=== PATIENT | female | born 1950 | race Caucasian/White ===

== ENCOUNTER 2017-08-11 13:43 | Day surgery (SDC) | payer MEDICARE, OTHER ==
[~2017-08-11 13:43] MED LIST: FLUR100 PO; HYDCHL12.5; HYDPAM50 PO; OXYACE5T PO; Vitamin A and1 EACH
[2017-08-11 15:51] LABS: Lactate Dehydrogenase, Body Fl 168 U/L
[2017-08-11 16:13] LABS: Protein, Body Fluid 4.7 g/dL
[2017-08-11 17:03] LABS: Appearance, Body Fluid Turbid (Clear); Color, Body Fluid Red (None-Yellow)
[2017-08-11 17:19] LABS: Total Cell Count, Body Fluid 100
[2017-09-09] MEDS ORDERED: CHOL10002 PO (21:41)
== END 2017-08-11 22:59 | disposition home or self-care (01) ==
LOC: US 13:43
PROVIDERS: Physician Assistant
PROC: 0W9G3ZZ Drainage of Peritoneal Cavity, Percutaneous Approach (ICD-10-PCS; principal; 2017-08-11)
DX: J18.9 Pneumonia, unspecified organism (principal); J91.8 Pleural effusion in other conditions classified elsewhere
CPT/HCPCS: 32555; 71260; 83615; 84157; 87070; 87205; 88108; 89051; Q9967

== ENCOUNTER 2017-09-09 18:57 | Inpatient (IN) | payer MEDICARE, OTHER ==
[~2017-09-09] VITALS: Ht 152.4 cm; Wt 67.4 kg
[2017-09-09 19:26] LABS: BASOPHILS ABSOLUTE AUTO 0.01 K/mm3 (0.00-0.23); BASOPHILS PERCENT AUTO 0 % (0-2); EOSINOPHILS PERCENT AUTO 0 % (0-6); Hematocrit 37.4 % (33.0-51.0); Hemoglobin 12.1 g/dL (11.5-16.0); IMMATURE GRAN ABSOLUTE AUTO 0.01 K/mm3 (0.00-0.10); IMMATURE GRAN PERCENT AUTO 0 % (0-1); LYMPHOCYTES ABSOLUTE AUTO 0.18 K/mm3 (0.84-5.20); LYMPHOCYTES PERCENT AUTO 2 % (21-46); MONOCYTES ABSOLUTE AUTO 0.36 K/mm3 (0.16-1.47); MONOCYTES PERCENT AUTO 5 % (4-13); Mean Corpuscular HGB 28.8 pg (26.0-34.0); Mean Corpuscular HGB Conc 32.4 g/dL (31.5-36.5); Mean Corpuscular Volume 89 fL (80-100); Mean Platelet Volume 8.9 fL (9.1-12.4); NEUTROPHILS ABSOLUTE AUTO 7.04 K/mm3 (1.96-9.15); NEUTROPHILS PERCENT AUTO 93 % (41-73); Platelet Count 231 K/mm3 (150-400); RDW Standard Deviation 45.3 fL (35.1-46.3)
[2017-09-09 19:56] LABS: Alanine Aminotransfer (ALT/SGP 24 U/L (12-78); Albumin, Blood 3.6 g/dL (3.4-5.0); Albumin/Globulin Ratio 0.9 (0.8-1.8); Alk Phos 70 U/L (50-136); Anion Gap 9 mmol/L (6-16); Aspartate Aminotrans (AST/SGOT 24 U/L (12-37); Bilirubin, Total 1.2 mg/dL (0.1-1.0); Blood Urea Nitrogen 18 mg/dL (8-24); Bun/Creatinine Ratio 29.1 (12.0-20.0); CO2, Blood 27 mmol/L (21-32); Calcium, Blood 8.7 mg/dL (8.5-10.1); Chloride, Blood 101 mmol/L (98-108); Creatinine, Blood 0.62 mg/dL (0.40-1.00); Globulin, Blood 3.9 g/dL (2.2-4.0); Glomerular Filtration Rate >60 (60-); Glucose, Blood 134 mg/dL (70-99); Potassium, Blood 3.1 mmol/L (3.5-5.5); Sodium, Blood 137 mmol/L (136-145); Total Protein, Blood 7.5 g/dL (6.4-8.2); Troponin I <0.015 ng/mL (0.000-0.040)
[2017-09-09 21:06] LABS: Magnesium, Blood 1.9 mg/dL (1.6-2.4)
[2017-09-09 21:16] LABS: International Normalized Ratio 1.07; Prothrombin Time Results 11.1 Sec (9.7-11.5)
[2017-09-09] MEDS ORDERED: CHOL10002 (21:41)
[2017-09-10 05:49] LABS: Alanine Aminotransfer (ALT/SGP 20 U/L (12-78); Albumin, Blood 2.7 g/dL (3.4-5.0); Albumin/Globulin Ratio 0.7 (0.8-1.8); Alk Phos 58 U/L (50-136); Anion Gap 7 mmol/L (6-16); Aspartate Aminotrans (AST/SGOT 14 U/L (12-37); Bilirubin, Total 1.3 mg/dL (0.1-1.0); Blood Urea Nitrogen 18 mg/dL (8-24); Bun/Creatinine Ratio 30.8 (12.0-20.0); CO2, Blood 27 mmol/L (21-32); Calcium, Blood 8.5 mg/dL (8.5-10.1); Chloride, Blood 106 mmol/L (98-108); Creatinine, Blood 0.58 mg/dL (0.40-1.00); Globulin, Blood 3.7 g/dL (2.2-4.0); Glomerular Filtration Rate >60 (60-); Glucose, Blood 111 mg/dL (70-99); Potassium, Blood 4.1 mmol/L (3.5-5.5); Sodium, Blood 140 mmol/L (136-145); Total Protein, Blood 6.4 g/dL (6.4-8.2)
[2017-09-11 05:51] LABS: Anion Gap 6 mmol/L (6-16); Blood Urea Nitrogen 18 mg/dL (8-24); Bun/Creatinine Ratio 34.7 (12.0-20.0); CO2, Blood 28 mmol/L (21-32); Calcium, Blood 8.8 mg/dL (8.5-10.1); Chloride, Blood 104 mmol/L (98-108); Creatinine, Blood 0.52 mg/dL (0.40-1.00); Glomerular Filtration Rate >60 (60-); Glucose, Blood 153 mg/dL (70-99); Potassium, Blood 3.8 mmol/L (3.5-5.5); Sodium, Blood 138 mmol/L (136-145)
[2017-09-11] MEDS ORDERED: ACET325 PO (14:23)
[2017-09-11] MEDS ORDERED: BENZ100A PO (14:24)
[2017-09-11] MEDS ORDERED: ALBU2.5V5 INH (14:24)
[2017-09-11] MEDS ORDERED: FAMO20 PO (14:25)
[2017-09-11] MEDS ORDERED: GAVILAX17 G1 PO (14:26)
[2017-09-11] MEDS ORDERED: PRED10 PO (14:26)
== END 2017-09-11 14:46 | disposition home or self-care (01) | DRG 188 ==
LOC: ER 18:57 → MEDS 18:58
PROVIDERS: Emergency Medicine; Internal Medicine
PROC: 0W9B3ZZ Drainage of Left Pleural Cavity, Percutaneous Approach (ICD-10-PCS; principal; 2017-09-10)
DX: J90 Pleural effusion, not elsewhere classified (principal); M06.9 Rheumatoid arthritis, unspecified; M41.9 Scoliosis, unspecified; I89.0 Lymphedema, not elsewhere classified
CPT/HCPCS: 32555; 36415; 71045; 71046; 80048; 80053; 83735; 83880; 84484; 85025; 85610; 93005; 93010; 94640; 94760; 96372; 99285; G0378; J1644; J2930

== ENCOUNTER 2017-09-22 10:57 | Inpatient (IN) | payer MEDICARE, OTHER ==
[~2017-09-22] VITALS: Ht 152.4 cm; Wt 66.6 kg
[~2017-09-22 10:57] MED LIST changes: +ACET325 PO; +ALBU2.5V5 INH; +BENZ100A PO; +CHOL10002 PO; +FAMO20 PO; +GAVILAX17 G1 PO; +PRED10 PO
[2017-09-22 11:54] LABS: BASOPHILS ABSOLUTE AUTO 0.03 K/mm3 (0.00-0.23); BASOPHILS PERCENT AUTO 0 % (0-2); EOSINOPHILS PERCENT AUTO 0 % (0-6); Hematocrit 31.8 % (33.0-51.0); Hemoglobin 10.4 g/dL (11.5-16.0); IMMATURE GRAN ABSOLUTE AUTO 0.08 K/mm3 (0.00-0.10); IMMATURE GRAN PERCENT AUTO 1 % (0-1); LYMPHOCYTES ABSOLUTE AUTO 0.23 K/mm3 (0.84-5.20); LYMPHOCYTES PERCENT AUTO 2 % (21-46); MONOCYTES ABSOLUTE AUTO 0.93 K/mm3 (0.16-1.47); MONOCYTES PERCENT AUTO 7 % (4-13); Mean Corpuscular HGB 29.3 pg (26.0-34.0); Mean Corpuscular HGB Conc 32.7 g/dL (31.5-36.5); Mean Corpuscular Volume 90 fL (80-100); Mean Platelet Volume 8.4 fL (9.1-12.4); NEUTROPHILS ABSOLUTE AUTO 12.68 K/mm3 (1.96-9.15); NEUTROPHILS PERCENT AUTO 91 % (41-73); Platelet Count 433 K/mm3 (150-400); RDW Coefficient Variation 14.1 % (11.7-14.2); RDW Standard Deviation 46.5 fL (35.1-46.3); Red Blood Cell Count 3.55 M/mm3 (3.80-5.20); White Blood Cell Count 13.95 K/mm3 (4.00-11.30)
[2017-09-22 12:20] LABS: Alanine Aminotransfer (ALT/SGP 41 U/L (12-78); Albumin, Blood 2.7 g/dL (3.4-5.0); Albumin/Globulin Ratio 0.6 (0.8-1.8); Alk Phos 128 U/L (50-136); Anion Gap 6 mmol/L (6-16); Aspartate Aminotrans (AST/SGOT 18 U/L (12-37); Bilirubin, Total 1.1 mg/dL (0.1-1.0); Blood Urea Nitrogen 12 mg/dL (8-24); Bun/Creatinine Ratio 21.7 (12.0-20.0); CO2, Blood 30 mmol/L (21-32); Calcium, Blood 8.5 mg/dL (8.5-10.1); Chloride, Blood 100 mmol/L (98-108); Creatinine, Blood 0.55 mg/dL (0.40-1.00); Globulin, Blood 4.6 g/dL (2.2-4.0); Glomerular Filtration Rate >60 (60-); Glucose, Blood 118 mg/dL (70-99); Potassium, Blood 3.6 mmol/L (3.5-5.5); Sodium, Blood 136 mmol/L (136-145); Total Protein, Blood 7.3 g/dL (6.4-8.2)
[2017-09-22 14:56] LABS: Automated BF RBC Count 0.177 M/mm3 (0-0); Automated BF WBC Count 1.022 K/mm3 (0-999); Body Fluid WBC Count 1022 /mm3 (0-999); RBC Count, Body Fluid 177000 /mm3 (0-0)
[2017-09-22 15:30] LABS: Appearance, Body Fluid Turbid (Clear); Color, Body Fluid Red (None-Yellow)
[2017-09-22 15:34] LABS: Total Cell Count, Body Fluid 100
[2017-09-22 22:30] LABS: Source, Urine Clean Catch
[2017-09-22 22:32] LABS: Bilirubin, Urine Neg (Neg); Blood, Urine 2+ (Neg); Glucose Qualitative, Urine Neg (Neg); Ketones, Urine Neg (Neg); Leukocyte Esterase, Urine Neg (Neg); Nitrite, Urine Neg (Neg); Protein, Urine Neg (Neg); Specific Gravity, Urine 1.015 (1.003-1.022); Urobilinogen, Urine NORM (Normal)
[2017-09-22 22:40] LABS: Appearance, Urine Clear (Clear); Color, Urine Yellow (P-Yellow)
[2017-09-22 22:41] LABS: Bacteria Few /hpf; Red Blood Cells, Urine 0-2 /hpf (0-2); Squamous Epithelial Cells Few /hpf (Few); White Blood Cells, Urine 0-2 /hpf (0-5)
[2017-09-23 05:07] LABS: BASOPHILS ABSOLUTE AUTO 0.01 K/mm3 (0.00-0.23); BASOPHILS PERCENT AUTO 0 % (0-2); EOSINOPHILS PERCENT AUTO 0 % (0-6); IMMATURE GRAN ABSOLUTE AUTO 0.05 K/mm3 (0.00-0.10); IMMATURE GRAN PERCENT AUTO 1 % (0-1); LYMPHOCYTES ABSOLUTE AUTO 0.47 K/mm3 (0.84-5.20); LYMPHOCYTES PERCENT AUTO 5 % (21-46); MONOCYTES ABSOLUTE AUTO 0.94 K/mm3 (0.16-1.47); MONOCYTES PERCENT AUTO 9 % (4-13); Mean Corpuscular HGB 28.8 pg (26.0-34.0); Mean Corpuscular HGB Conc 32.1 g/dL (31.5-36.5); Mean Corpuscular Volume 90 fL (80-100); Mean Platelet Volume 8.8 fL (9.1-12.4); NEUTROPHILS ABSOLUTE AUTO 8.82 K/mm3 (1.96-9.15); NEUTROPHILS PERCENT AUTO 86 % (41-73); Platelet Count 350 K/mm3 (150-400); RDW Standard Deviation 45.7 fL (35.1-46.3); Red Blood Cell Count 3.13 M/mm3 (3.80-5.20); White Blood Cell Count 10.29 K/mm3 (4.00-11.30)
[2017-09-23 05:34] LABS: Alanine Aminotransfer (ALT/SGP 32 U/L (12-78); Albumin, Blood 1.9 g/dL (3.4-5.0); Albumin/Globulin Ratio 0.5 (0.8-1.8); Alk Phos 100 U/L (50-136); Anion Gap 8 mmol/L (6-16); Aspartate Aminotrans (AST/SGOT 12 U/L (12-37); Bilirubin, Total 0.7 mg/dL (0.1-1.0); Blood Urea Nitrogen 13 mg/dL (8-24); Bun/Creatinine Ratio 25.6 (12.0-20.0); CO2, Blood 29 mmol/L (21-32); Calcium, Blood 8.3 mg/dL (8.5-10.1); Chloride, Blood 102 mmol/L (98-108); Creatinine, Blood 0.51 mg/dL (0.40-1.00); Globulin, Blood 4.2 g/dL (2.2-4.0); Glomerular Filtration Rate >60 (60-); Glucose, Blood 98 mg/dL (70-99); Potassium, Blood 3.5 mmol/L (3.5-5.5); Sodium, Blood 139 mmol/L (136-145); Total Protein, Blood 6.1 g/dL (6.4-8.2); Troponin I <0.015 ng/mL (0.000-0.040)
[2017-09-25 09:26] LABS: HCV Non Reactive (NR)
[2017-09-25] MEDS ORDERED: LEVFLO500 PO (15:57)
[2017-09-25] MEDS ORDERED: ALBU90OI INH (15:58)
== END 2017-09-25 17:06 | disposition home or self-care (01) | DRG 871 ==
LOC: ER 10:57 → MEDS 15:49
PROVIDERS: Emergency Medicine; Internal Medicine; Physician Assistant
PROC: 0W9B3ZZ Drainage of Left Pleural Cavity, Percutaneous Approach (ICD-10-PCS; principal; 2017-09-22)
PROC: 0W993ZX Drainage of Right Pleural Cavity, Percutaneous Approach, Diagnostic (ICD-10-PCS; 2017-09-22)
DX: A41.51 Sepsis due to Escherichia coli [E. coli] (principal); J18.9 Pneumonia, unspecified organism; J96.21 Acute and chronic respiratory failure with hypoxia; J90 Pleural effusion, not elsewhere classified; J98.11 Atelectasis; M06.9 Rheumatoid arthritis, unspecified; R09.02 Hypoxemia; Z99.81 Dependence on supplemental oxygen; J45.909 Unspecified asthma, uncomplicated; I89.0 Lymphedema, not elsewhere classified; I10 Essential (primary) hypertension
CPT/HCPCS: 32555; 36415; 71045; 71046; 80053; 80074; 81001; 83605; 84443; 84484; 85025; 87040; 87070; 87077; 87186; 87205; 89051; 93005; 93010; 94640; 94760; 94761; 96365; 96366; 96367; 96368; 97116; 97161; 99285; G8978; G8979; G8980; J0456; J0696; J1650; J1956; J2543; J7030; J7050

== ENCOUNTER 2018-10-01 07:39 | Day surgery (SDC) | payer MEDICARE, OTHER ==
[~2018-10-01 07:39] MED LIST changes: +ALBU90OI INH; +LEVFLO500 PO
== END 2018-10-01 23:08 | disposition home or self-care (01) ==
LOC: MOI US 07:39 → MOI MAM 08:00 → MOI US 23:08
DX: D24.2 Benign neoplasm of left breast (principal); R92.8 Other abnormal and inconclusive findings on diagnostic imaging of breast
CPT/HCPCS: 19083; 77065; 88305; A4648; G0279

== ENCOUNTER → 2018-10-07 | Outpatient (CLI) | payer MEDICARE, OTHER ==
[2018-10-08 14:24] LABS: Stool Occult Bld Immuno 1 Negative (NEGATIVE); Stool Occult Bld Immuno 2 Negative (NEGATIVE); Stool Occult Bld Immuno 3 Negative (NEGATIVE)
== END | disposition home or self-care (01) ==
LOC: LAB EV 09:00
PROVIDERS: Physician Assistant
DX: D64.9 Anemia, unspecified (principal)
CPT/HCPCS: 82274

== ENCOUNTER 2020-01-01 09:31 | Emergency (ER) | payer MEDICARE, OTHER ==
[~2020-01-01] VITALS: Ht 149.9 cm; Wt 51.3 kg
[2020-01-01 10:04] LABS: BASOPHILS ABSOLUTE AUTO 0.05 K/mm3 (0.00-0.23); BASOPHILS PERCENT AUTO 1 % (0-2); EOSINOPHILS ABSOLUTE AUTO 0.02 K/mm3 (0.00-0.68); EOSINOPHILS PERCENT AUTO 0 % (0-6); Hematocrit 28.5 % (33.0-51.0); Hemoglobin 8.4 g/dL (11.5-16.0); IMMATURE GRAN ABSOLUTE AUTO 0.03 K/mm3 (0.00-0.10); IMMATURE GRAN PERCENT AUTO 1 % (0-1); LYMPHOCYTES ABSOLUTE AUTO 0.87 K/mm3 (0.84-5.20); LYMPHOCYTES PERCENT AUTO 13 % (21-46); MONOCYTES ABSOLUTE AUTO 0.71 K/mm3 (0.16-1.47); MONOCYTES PERCENT AUTO 11 % (4-13); Mean Corpuscular HGB 26.3 pg (26.0-34.0); Mean Corpuscular HGB Conc 29.5 g/dL (31.5-36.5); Mean Corpuscular Volume 89 fL (80-100); NEUTROPHILS ABSOLUTE AUTO 4.96 K/mm3 (1.96-9.15); NEUTROPHILS PERCENT AUTO 75 % (41-73); Platelet Count 503 K/mm3 (150-400); RDW Coefficient Variation 14.1 % (11.7-14.2); RDW Standard Deviation 45.7 fL (35.1-46.3); White Blood Cell Count 6.64 K/mm3 (4.00-11.30)
[2020-01-01 10:17] LABS: International Normalized Ratio 1.11; Prothrombin Time Results 11.8 Sec (9.7-11.5)
[2020-01-01 10:38] LABS: Alanine Aminotransfer (ALT/SGP 6 U/L (12-78); Albumin, Blood 2.2 g/dL (3.4-5.0); Albumin/Globulin Ratio 0.4 (0.8-1.8); Alk Phos 86 U/L (50-136); Anion Gap 5 mmol/L (6-16); Aspartate Aminotrans (AST/SGOT 8 U/L (12-37); Bilirubin, Total 0.2 mg/dL (0.1-1.0); Blood Urea Nitrogen 13 mg/dL (8-24); Bun/Creatinine Ratio 24.6 (12.0-20.0); CO2, Blood 29 mmol/L (21-32); Calcium, Blood 8.6 mg/dL (8.5-10.1); Chloride, Blood 104 mmol/L (98-108); Creatinine, Blood 0.53 mg/dL (0.40-1.00); Glomerular Filtration Rate >60 (60-); Glucose, Blood 100 mg/dL (70-99); Potassium, Blood 3.3 mmol/L (3.5-5.5); Sodium, Blood 138 mmol/L (136-145); Total Protein, Blood 8.2 g/dL (6.4-8.2)
[2020-01-01] MEDS ORDERED: HYDCHL25 PO (10:51)
[2020-01-01] MEDS ORDERED: LEVFLO500 PO (12:06)
== END 2020-01-01 13:47 | disposition home or self-care (01) ==
LOC: ER 09:31
PROVIDERS: Physician Assistant
DX: T84.051A Periprosthetic osteolysis of internal prosthetic left hip joint, initial encounter (principal); T84.52XA Infection and inflammatory reaction due to internal left hip prosthesis, initial encounter; M06.9 Rheumatoid arthritis, unspecified; Z79.52 Long term (current) use of systemic steroids; Z79.899 Other long term (current) drug therapy; Z96.642 Presence of left artificial hip joint; S71.002A Unspecified open wound, left hip, initial encounter; M85.852 Other specified disorders of bone density and structure, left thigh
CPT/HCPCS: 36415; 73502; 80053; 83605; 84145; 85025; 85610; 85730; 87040; 87070; 87075; 87077; 87186; 87205; 93005; 93010; 99284-25

== ENCOUNTER 2020-09-11 00:40 | Day surgery (SDC) | payer MEDICARE, OTHER ==
[~2020-09-11 00:40] MED LIST changes: +HYDCHL25 PO
== END 2020-09-11 22:58 | disposition home or self-care (01) ==
LOC: WOUND 00:40
DX: L97.311 Non-pressure chronic ulcer of right ankle limited to breakdown of skin (principal); L95.9 Vasculitis limited to the skin, unspecified; L97.309 Non-pressure chronic ulcer of unspecified ankle with unspecified severity; I87.2 Venous insufficiency (chronic) (peripheral); I73.9 Peripheral vascular disease, unspecified; L03.115 Cellulitis of right lower limb; M21.41 Flat foot [pes planus] (acquired), right foot
CPT/HCPCS: A9270; G0463

== ENCOUNTER 2020-09-18 00:52 | Day surgery (SDC) | payer MEDICARE, OTHER | END 2020-09-18 23:10 | disposition home or self-care (01) | LOC: WOUND 00:52 | DX: L97.311 Non-pressure chronic ulcer of right ankle limited to breakdown of skin (principal); L95.9 Vasculitis limited to the skin, unspecified; I87.2 Venous insufficiency (chronic) (peripheral); I73.9 Peripheral vascular disease, unspecified; L03.115 Cellulitis of right lower limb; M21.41 Flat foot [pes planus] (acquired), right foot | CPT/HCPCS: A9270 ==

== ENCOUNTER 2020-10-09 02:05 | Day surgery (SDC) | payer MEDICARE, OTHER | END 2020-10-09 23:09 | disposition home or self-care (01) | LOC: WOUND 02:05 | DX: L03.115 Cellulitis of right lower limb (principal); L95.9 Vasculitis limited to the skin, unspecified; L97.309 Non-pressure chronic ulcer of unspecified ankle with unspecified severity; I87.2 Venous insufficiency (chronic) (peripheral); I73.9 Peripheral vascular disease, unspecified; L97.311 Non-pressure chronic ulcer of right ankle limited to breakdown of skin; M21.41 Flat foot [pes planus] (acquired), right foot | CPT/HCPCS: A9270 ==

== ENCOUNTER 2020-10-16 00:45 | Day surgery (SDC) | payer MEDICARE, OTHER | END 2020-10-16 23:07 | disposition home or self-care (01) | LOC: WOUND 00:45 | DX: L97.515 Non-pressure chronic ulcer of other part of right foot with muscle involvement without evidence of necrosis (principal); L97.512 Non-pressure chronic ulcer of other part of right foot with fat layer exposed; L97.311 Non-pressure chronic ulcer of right ankle limited to breakdown of skin; L95.9 Vasculitis limited to the skin, unspecified; I87.2 Venous insufficiency (chronic) (peripheral); I73.9 Peripheral vascular disease, unspecified; L03.115 Cellulitis of right lower limb; M21.41 Flat foot [pes planus] (acquired), right foot | CPT/HCPCS: 87071; 87075; 87077; 87147; 87186; 87205; A9270 ==

== ENCOUNTER 2020-10-23 00:30 | Day surgery (SDC) | payer MEDICARE, OTHER | END 2020-10-23 22:41 | disposition home or self-care (01) | LOC: WOUND 00:30 | DX: L03.115 Cellulitis of right lower limb (principal); L95.9 Vasculitis limited to the skin, unspecified; L97.309 Non-pressure chronic ulcer of unspecified ankle with unspecified severity; L97.311 Non-pressure chronic ulcer of right ankle limited to breakdown of skin; I87.2 Venous insufficiency (chronic) (peripheral); I73.9 Peripheral vascular disease, unspecified; M21.41 Flat foot [pes planus] (acquired), right foot | CPT/HCPCS: A9270 ==

== ENCOUNTER 2020-10-30 00:54 | Day surgery (SDC) | payer MEDICARE, OTHER | END 2020-10-30 23:11 | disposition home or self-care (01) | LOC: WOUND 00:54 | DX: L03.115 Cellulitis of right lower limb (principal); L95.9 Vasculitis limited to the skin, unspecified; L97.418 Non-pressure chronic ulcer of right heel and midfoot with other specified severity; L97.309 Non-pressure chronic ulcer of unspecified ankle with unspecified severity; L03.116 Cellulitis of left lower limb; I87.2 Venous insufficiency (chronic) (peripheral); I73.9 Peripheral vascular disease, unspecified; M21.41 Flat foot [pes planus] (acquired), right foot | CPT/HCPCS: A9270 ==

== ENCOUNTER 2020-11-06 04:20 | Day surgery (SDC) | payer MEDICARE, OTHER | END 2020-11-06 23:10 | disposition home or self-care (01) | LOC: WOUND 04:20 | DX: L03.115 Cellulitis of right lower limb (principal); L95.9 Vasculitis limited to the skin, unspecified; L97.309 Non-pressure chronic ulcer of unspecified ankle with unspecified severity; L97.518 Non-pressure chronic ulcer of other part of right foot with other specified severity; I87.2 Venous insufficiency (chronic) (peripheral); I73.9 Peripheral vascular disease, unspecified; M21.41 Flat foot [pes planus] (acquired), right foot | CPT/HCPCS: A9270 ==

== ENCOUNTER 2020-11-13 04:10 | Day surgery (SDC) | payer MEDICARE, OTHER | END 2020-11-14 00:35 | disposition home or self-care (01) | LOC: WOUND 04:10 | DX: L95.9 Vasculitis limited to the skin, unspecified (principal); L97.309 Non-pressure chronic ulcer of unspecified ankle with unspecified severity; I87.2 Venous insufficiency (chronic) (peripheral); I73.9 Peripheral vascular disease, unspecified; L03.115 Cellulitis of right lower limb; M21.41 Flat foot [pes planus] (acquired), right foot; L97.518 Non-pressure chronic ulcer of other part of right foot with other specified severity | CPT/HCPCS: A9270; G0463 ==

== ENCOUNTER 2020-11-27 01:47 | Day surgery (SDC) | payer MEDICARE, OTHER | END 2020-11-27 12:00 | disposition home or self-care (01) | LOC: WOUND 01:47 | DX: L03.115 Cellulitis of right lower limb (principal); L95.9 Vasculitis limited to the skin, unspecified; L97.309 Non-pressure chronic ulcer of unspecified ankle with unspecified severity; L97.518 Non-pressure chronic ulcer of other part of right foot with other specified severity; I87.2 Venous insufficiency (chronic) (peripheral); I73.9 Peripheral vascular disease, unspecified; M21.41 Flat foot [pes planus] (acquired), right foot | CPT/HCPCS: A9270 ==

== ENCOUNTER 2020-12-04 04:54 | Day surgery (SDC) | payer MEDICARE, OTHER | END 2020-12-04 23:42 | disposition home or self-care (01) | LOC: WOUND 04:54 | DX: L97.315 Non-pressure chronic ulcer of right ankle with muscle involvement without evidence of necrosis (principal); L97.518 Non-pressure chronic ulcer of other part of right foot with other specified severity; L95.9 Vasculitis limited to the skin, unspecified; L03.115 Cellulitis of right lower limb; I87.2 Venous insufficiency (chronic) (peripheral); I73.9 Peripheral vascular disease, unspecified; M21.41 Flat foot [pes planus] (acquired), right foot | CPT/HCPCS: A9270; G0463 ==

== ENCOUNTER 2020-12-11 00:33 | Day surgery (SDC) | payer MEDICARE, OTHER | END 2020-12-11 23:00 | disposition home or self-care (01) | LOC: WOUND 00:33 | DX: L03.115 Cellulitis of right lower limb (principal) | CPT/HCPCS: A9270 ==

== ENCOUNTER 2020-12-25 01:33 | Day surgery (SDC) | payer MEDICARE, OTHER | END 2020-12-25 12:00 | disposition home or self-care (01) | LOC: WOUND 01:33 | DX: L95.9 Vasculitis limited to the skin, unspecified (principal); L97.309 Non-pressure chronic ulcer of unspecified ankle with unspecified severity; L97.518 Non-pressure chronic ulcer of other part of right foot with other specified severity; I87.2 Venous insufficiency (chronic) (peripheral); I73.9 Peripheral vascular disease, unspecified; M21.41 Flat foot [pes planus] (acquired), right foot | CPT/HCPCS: A9270 ==

== ENCOUNTER 2021-01-01 01:08 | Day surgery (SDC) | payer MEDICARE, OTHER | END 2021-01-01 23:17 | disposition home or self-care (01) | LOC: WOUND 01:08 | DX: L97.315 Non-pressure chronic ulcer of right ankle with muscle involvement without evidence of necrosis (principal); L03.115 Cellulitis of right lower limb; L95.9 Vasculitis limited to the skin, unspecified; I87.2 Venous insufficiency (chronic) (peripheral); I73.9 Peripheral vascular disease, unspecified; M21.41 Flat foot [pes planus] (acquired), right foot; M06.9 Rheumatoid arthritis, unspecified | CPT/HCPCS: A9270 ==

== ENCOUNTER 2021-01-08 00:21 | Day surgery (SDC) | payer MEDICARE, OTHER | END 2021-01-08 23:00 | disposition home or self-care (01) | LOC: WOUND 00:21 | DX: L95.9 Vasculitis limited to the skin, unspecified (principal); L97.309 Non-pressure chronic ulcer of unspecified ankle with unspecified severity; L97.518 Non-pressure chronic ulcer of other part of right foot with other specified severity; I87.2 Venous insufficiency (chronic) (peripheral); I73.9 Peripheral vascular disease, unspecified; M21.41 Flat foot [pes planus] (acquired), right foot | CPT/HCPCS: A9270 ==

== ENCOUNTER 2021-01-15 01:19 | Day surgery (SDC) | payer MEDICARE, OTHER | END 2021-01-15 23:41 | disposition home or self-care (01) | LOC: WOUND 01:19 | DX: L97.312 Non-pressure chronic ulcer of right ankle with fat layer exposed (principal); L95.9 Vasculitis limited to the skin, unspecified; I87.2 Venous insufficiency (chronic) (peripheral); I73.9 Peripheral vascular disease, unspecified; M21.41 Flat foot [pes planus] (acquired), right foot | CPT/HCPCS: A9270 ==

== ENCOUNTER 2021-01-22 00:55 | Day surgery (SDC) | payer MEDICARE, OTHER | END 2021-01-22 23:58 | disposition home or self-care (01) | LOC: WOUND 00:55 | DX: L95.9 Vasculitis limited to the skin, unspecified (principal); L97.309 Non-pressure chronic ulcer of unspecified ankle with unspecified severity; L97.518 Non-pressure chronic ulcer of other part of right foot with other specified severity; I87.2 Venous insufficiency (chronic) (peripheral); I73.9 Peripheral vascular disease, unspecified; M21.41 Flat foot [pes planus] (acquired), right foot | CPT/HCPCS: A9270 ==

== ENCOUNTER 2021-01-29 02:28 | Day surgery (SDC) | payer MEDICARE, OTHER | END 2021-01-29 23:29 | disposition home or self-care (01) | LOC: WOUND 02:28 | DX: L97.312 Non-pressure chronic ulcer of right ankle with fat layer exposed (principal); L97.518 Non-pressure chronic ulcer of other part of right foot with other specified severity; I87.2 Venous insufficiency (chronic) (peripheral); I73.9 Peripheral vascular disease, unspecified; M06.9 Rheumatoid arthritis, unspecified; M32.9 Systemic lupus erythematosus, unspecified; M21.41 Flat foot [pes planus] (acquired), right foot; L95.9 Vasculitis limited to the skin, unspecified | CPT/HCPCS: A9270 ==

== ENCOUNTER 2021-02-04 01:31 | Day surgery (SDC) | payer MEDICARE, OTHER | END 2021-02-04 23:08 | disposition home or self-care (01) | LOC: WOUND 01:31 | DX: L03.115 Cellulitis of right lower limb (principal); L95.9 Vasculitis limited to the skin, unspecified; I87.2 Venous insufficiency (chronic) (peripheral); L97.309 Non-pressure chronic ulcer of unspecified ankle with unspecified severity; L97.518 Non-pressure chronic ulcer of other part of right foot with other specified severity; I73.9 Peripheral vascular disease, unspecified; M21.41 Flat foot [pes planus] (acquired), right foot | CPT/HCPCS: A9270 ==

== ENCOUNTER 2021-02-11 01:38 | Day surgery (SDC) | payer MEDICARE, OTHER | END 2021-02-11 23:06 | disposition home or self-care (01) | LOC: WOUND 01:38 | PROC: 0HBMXZZ Excision of Right Foot Skin, External Approach (ICD-10-PCS; principal; 2021-02-11) | DX: L97.512 Non-pressure chronic ulcer of other part of right foot with fat layer exposed (principal); L03.115 Cellulitis of right lower limb; L97.519 Non-pressure chronic ulcer of other part of right foot with unspecified severity; M06.9 Rheumatoid arthritis, unspecified; M32.9 Systemic lupus erythematosus, unspecified; I73.9 Peripheral vascular disease, unspecified; M21.41 Flat foot [pes planus] (acquired), right foot | CPT/HCPCS: A9270 ==

== ENCOUNTER 2021-02-25 01:08 | Day surgery (SDC) | payer MEDICARE, OTHER | END 2021-02-25 23:05 | disposition home or self-care (01) | LOC: WOUND 01:08 | DX: L03.115 Cellulitis of right lower limb (principal); L95.9 Vasculitis limited to the skin, unspecified; L97.309 Non-pressure chronic ulcer of unspecified ankle with unspecified severity; L97.518 Non-pressure chronic ulcer of other part of right foot with other specified severity; I87.2 Venous insufficiency (chronic) (peripheral); I73.9 Peripheral vascular disease, unspecified; M21.41 Flat foot [pes planus] (acquired), right foot | CPT/HCPCS: A9270; Q4133 ==

== ENCOUNTER 2021-03-04 00:40 | Day surgery (SDC) | payer MEDICARE, OTHER | END 2021-03-04 23:05 | disposition home or self-care (01) | LOC: WOUND 00:40 | DX: L03.115 Cellulitis of right lower limb (principal); L97.302 Non-pressure chronic ulcer of unspecified ankle with fat layer exposed; L97.518 Non-pressure chronic ulcer of other part of right foot with other specified severity; I87.2 Venous insufficiency (chronic) (peripheral); L95.9 Vasculitis limited to the skin, unspecified; I73.9 Peripheral vascular disease, unspecified; M21.41 Flat foot [pes planus] (acquired), right foot | CPT/HCPCS: A9270; Q4133 ==

== ENCOUNTER 2021-03-11 01:53 | Day surgery (SDC) | payer MEDICARE, OTHER | END 2021-03-11 23:59 | disposition home or self-care (01) | LOC: WOUND 01:53 | DX: L03.115 Cellulitis of right lower limb (principal); L97.312 Non-pressure chronic ulcer of right ankle with fat layer exposed; L97.518 Non-pressure chronic ulcer of other part of right foot with other specified severity; I87.2 Venous insufficiency (chronic) (peripheral); L95.9 Vasculitis limited to the skin, unspecified; I73.9 Peripheral vascular disease, unspecified; M21.41 Flat foot [pes planus] (acquired), right foot | CPT/HCPCS: A9270; G0463 ==

== ENCOUNTER 2021-03-18 01:01 | Day surgery (SDC) | payer MEDICARE, OTHER | END 2021-03-18 23:03 | disposition home or self-care (01) | LOC: WOUND 01:01 | DX: L03.115 Cellulitis of right lower limb (principal); L97.302 Non-pressure chronic ulcer of unspecified ankle with fat layer exposed; L97.518 Non-pressure chronic ulcer of other part of right foot with other specified severity; I87.2 Venous insufficiency (chronic) (peripheral); L95.9 Vasculitis limited to the skin, unspecified; I73.9 Peripheral vascular disease, unspecified; M21.41 Flat foot [pes planus] (acquired), right foot; Z88.0 Allergy status to penicillin | CPT/HCPCS: A9270; Q4133 ==

== ENCOUNTER 2021-03-25 00:51 | Day surgery (SDC) | payer MEDICARE, OTHER | END 2021-03-25 23:22 | disposition home or self-care (01) | LOC: WOUND 00:51 | DX: L03.115 Cellulitis of right lower limb (principal); L97.302 Non-pressure chronic ulcer of unspecified ankle with fat layer exposed; L97.518 Non-pressure chronic ulcer of other part of right foot with other specified severity; I87.2 Venous insufficiency (chronic) (peripheral); L95.9 Vasculitis limited to the skin, unspecified; I73.9 Peripheral vascular disease, unspecified; M21.41 Flat foot [pes planus] (acquired), right foot; Z88.0 Allergy status to penicillin | CPT/HCPCS: A9270; Q4133 ==

== ENCOUNTER 2021-04-01 01:31 | Day surgery (SDC) | payer MEDICARE, OTHER | END 2021-04-01 23:11 | disposition home or self-care (01) | LOC: WOUND 01:31 | DX: L97.302 Non-pressure chronic ulcer of unspecified ankle with fat layer exposed (principal); L97.518 Non-pressure chronic ulcer of other part of right foot with other specified severity; L95.9 Vasculitis limited to the skin, unspecified; I73.9 Peripheral vascular disease, unspecified; M21.41 Flat foot [pes planus] (acquired), right foot; I87.2 Venous insufficiency (chronic) (peripheral) | CPT/HCPCS: A9270; Q4133 ==

== ENCOUNTER 2021-04-08 08:00 | Day surgery (SDC) | payer MEDICARE, OTHER | END 2021-04-08 23:59 | disposition home or self-care (01) | LOC: WOUND 08:00 | DX: L97.518 Non-pressure chronic ulcer of other part of right foot with other specified severity (principal); L97.302 Non-pressure chronic ulcer of unspecified ankle with fat layer exposed; L95.9 Vasculitis limited to the skin, unspecified; I73.9 Peripheral vascular disease, unspecified; M21.41 Flat foot [pes planus] (acquired), right foot; I87.2 Venous insufficiency (chronic) (peripheral) ==

== ENCOUNTER 2021-04-14 04:46 | Day surgery (SDC) | payer MEDICARE, OTHER | END 2021-04-14 23:01 | disposition home or self-care (01) | LOC: WOUND 04:46 | DX: L03.115 Cellulitis of right lower limb (principal); L97.518 Non-pressure chronic ulcer of other part of right foot with other specified severity; L97.302 Non-pressure chronic ulcer of unspecified ankle with fat layer exposed; L95.9 Vasculitis limited to the skin, unspecified; I73.9 Peripheral vascular disease, unspecified; I87.2 Venous insufficiency (chronic) (peripheral); M21.41 Flat foot [pes planus] (acquired), right foot | CPT/HCPCS: A9270 ==

== ENCOUNTER 2021-04-21 03:18 | Day surgery (SDC) | payer MEDICARE, OTHER | END 2021-04-21 23:51 | disposition home or self-care (01) | LOC: WOUND 03:18 | DX: L03.115 Cellulitis of right lower limb (principal); L97.512 Non-pressure chronic ulcer of other part of right foot with fat layer exposed; L97.302 Non-pressure chronic ulcer of unspecified ankle with fat layer exposed; I87.2 Venous insufficiency (chronic) (peripheral); L95.9 Vasculitis limited to the skin, unspecified; I73.9 Peripheral vascular disease, unspecified; M21.41 Flat foot [pes planus] (acquired), right foot | CPT/HCPCS: A9270 ==

== ENCOUNTER 2021-04-28 05:10 | Day surgery (SDC) | payer MEDICARE, OTHER | END 2021-04-28 23:39 | disposition home or self-care (01) | LOC: WOUND 05:10 | DX: L97.302 Non-pressure chronic ulcer of unspecified ankle with fat layer exposed (principal); L97.518 Non-pressure chronic ulcer of other part of right foot with other specified severity; L95.9 Vasculitis limited to the skin, unspecified; I87.2 Venous insufficiency (chronic) (peripheral); I73.9 Peripheral vascular disease, unspecified; M21.41 Flat foot [pes planus] (acquired), right foot ==

== ENCOUNTER 2021-05-05 01:53 | Day surgery (SDC) | payer MEDICARE, OTHER | END 2021-05-05 23:11 | disposition home or self-care (01) | LOC: WOUND 01:53 | DX: L03.115 Cellulitis of right lower limb (principal); L97.302 Non-pressure chronic ulcer of unspecified ankle with fat layer exposed; L97.518 Non-pressure chronic ulcer of other part of right foot with other specified severity; L95.9 Vasculitis limited to the skin, unspecified; I73.9 Peripheral vascular disease, unspecified; I87.2 Venous insufficiency (chronic) (peripheral); M21.41 Flat foot [pes planus] (acquired), right foot | CPT/HCPCS: A9270 ==

== ENCOUNTER 2021-05-12 00:20 | Day surgery (SDC) | payer MEDICARE, OTHER | END 2021-05-12 23:17 | disposition home or self-care (01) | LOC: WOUND 00:20 | DX: L97.302 Non-pressure chronic ulcer of unspecified ankle with fat layer exposed (principal); L97.518 Non-pressure chronic ulcer of other part of right foot with other specified severity; I87.2 Venous insufficiency (chronic) (peripheral); L95.9 Vasculitis limited to the skin, unspecified; I73.9 Peripheral vascular disease, unspecified; M21.41 Flat foot [pes planus] (acquired), right foot ==

== ENCOUNTER 2021-05-19 02:51 | Day surgery (SDC) | payer MEDICARE, OTHER | END 2021-05-19 23:06 | disposition home or self-care (01) | LOC: WOUND 02:51 | DX: L97.312 Non-pressure chronic ulcer of right ankle with fat layer exposed (principal); I87.2 Venous insufficiency (chronic) (peripheral); I73.9 Peripheral vascular disease, unspecified; M21.41 Flat foot [pes planus] (acquired), right foot | CPT/HCPCS: A9270 ==

== ENCOUNTER 2021-06-09 05:10 | Day surgery (SDC) | payer MEDICARE, OTHER | END 2021-06-09 23:43 | disposition home or self-care (01) | LOC: WOUND 05:10 | DX: L97.518 Non-pressure chronic ulcer of other part of right foot with other specified severity (principal); L97.302 Non-pressure chronic ulcer of unspecified ankle with fat layer exposed; I87.2 Venous insufficiency (chronic) (peripheral); I73.9 Peripheral vascular disease, unspecified; L95.9 Vasculitis limited to the skin, unspecified; M21.41 Flat foot [pes planus] (acquired), right foot | CPT/HCPCS: A9270 ==

== ENCOUNTER 2021-06-16 01:44 | Day surgery (SDC) | payer MEDICARE, OTHER | END 2021-06-16 22:39 | disposition home or self-care (01) | LOC: WOUND 01:44 | DX: L03.115 Cellulitis of right lower limb (principal); I87.2 Venous insufficiency (chronic) (peripheral); I73.9 Peripheral vascular disease, unspecified; M21.41 Flat foot [pes planus] (acquired), right foot; M06.9 Rheumatoid arthritis, unspecified; M32.9 Systemic lupus erythematosus, unspecified | CPT/HCPCS: A9270 ==

== ENCOUNTER 2021-06-23 00:36 | Day surgery (SDC) | payer MEDICARE, OTHER | END 2021-06-23 22:51 | disposition home or self-care (01) | LOC: WOUND 00:36 | DX: L97.312 Non-pressure chronic ulcer of right ankle with fat layer exposed (principal); L97.518 Non-pressure chronic ulcer of other part of right foot with other specified severity; I87.2 Venous insufficiency (chronic) (peripheral); L95.9 Vasculitis limited to the skin, unspecified; I73.9 Peripheral vascular disease, unspecified; M21.41 Flat foot [pes planus] (acquired), right foot | CPT/HCPCS: A9270 ==

== ENCOUNTER 2021-06-30 01:07 | Day surgery (SDC) | payer MEDICARE, OTHER | END 2021-06-30 23:08 | disposition home or self-care (01) | LOC: WOUND 01:07 | DX: L03.115 Cellulitis of right lower limb (principal); M06.9 Rheumatoid arthritis, unspecified; M32.9 Systemic lupus erythematosus, unspecified; I87.2 Venous insufficiency (chronic) (peripheral); L95.9 Vasculitis limited to the skin, unspecified; I73.9 Peripheral vascular disease, unspecified; M21.41 Flat foot [pes planus] (acquired), right foot | CPT/HCPCS: A9270; Q4133 ==

== ENCOUNTER 2021-07-07 03:12 | Day surgery (SDC) | payer MEDICARE, OTHER | END 2021-07-08 02:27 | disposition home or self-care (01) | LOC: WOUND 03:12 | DX: L03.115 Cellulitis of right lower limb (principal); L95.9 Vasculitis limited to the skin, unspecified; I87.2 Venous insufficiency (chronic) (peripheral); I73.9 Peripheral vascular disease, unspecified; M21.41 Flat foot [pes planus] (acquired), right foot; M06.9 Rheumatoid arthritis, unspecified; M32.9 Systemic lupus erythematosus, unspecified | CPT/HCPCS: A9270; Q4133 ==

== ENCOUNTER 2021-07-14 00:39 | Day surgery (SDC) | payer MEDICARE, OTHER | END 2021-07-14 23:36 | disposition home or self-care (01) | LOC: WOUND 00:39 | DX: L03.115 Cellulitis of right lower limb (principal); L97.518 Non-pressure chronic ulcer of other part of right foot with other specified severity; I87.2 Venous insufficiency (chronic) (peripheral); L95.9 Vasculitis limited to the skin, unspecified; I73.9 Peripheral vascular disease, unspecified; M21.41 Flat foot [pes planus] (acquired), right foot | CPT/HCPCS: A9270 ==

== ENCOUNTER 2021-07-21 00:07 | Day surgery (SDC) | payer MEDICARE, OTHER | END 2021-07-21 23:22 | disposition home or self-care (01) | LOC: WOUND 00:07 | DX: L03.115 Cellulitis of right lower limb (principal); L97.518 Non-pressure chronic ulcer of other part of right foot with other specified severity; I87.2 Venous insufficiency (chronic) (peripheral); L95.9 Vasculitis limited to the skin, unspecified; I73.9 Peripheral vascular disease, unspecified; M21.41 Flat foot [pes planus] (acquired), right foot | CPT/HCPCS: A9270 ==

== ENCOUNTER 2021-07-28 00:18 | Day surgery (SDC) | payer MEDICARE, OTHER | END 2021-07-28 22:50 | disposition home or self-care (01) | LOC: WOUND 00:18 | DX: L03.115 Cellulitis of right lower limb (principal); I87.2 Venous insufficiency (chronic) (peripheral); L97.518 Non-pressure chronic ulcer of other part of right foot with other specified severity; L95.9 Vasculitis limited to the skin, unspecified; I73.9 Peripheral vascular disease, unspecified; M21.41 Flat foot [pes planus] (acquired), right foot | CPT/HCPCS: A9270; Q4133 ==

== ENCOUNTER 2021-08-04 01:47 | Day surgery (SDC) | payer MEDICARE, OTHER | END 2021-08-04 23:23 | disposition home or self-care (01) | LOC: WOUND 01:47 | DX: L97.315 Non-pressure chronic ulcer of right ankle with muscle involvement without evidence of necrosis (principal); L97.518 Non-pressure chronic ulcer of other part of right foot with other specified severity; L95.9 Vasculitis limited to the skin, unspecified; I87.2 Venous insufficiency (chronic) (peripheral); I73.9 Peripheral vascular disease, unspecified; M21.41 Flat foot [pes planus] (acquired), right foot | CPT/HCPCS: A9270; Q4133 ==

== ENCOUNTER 2021-08-11 03:27 | Day surgery (SDC) | payer MEDICARE, OTHER | END 2021-08-11 23:03 | disposition home or self-care (01) | LOC: WOUND 03:27 | DX: L03.115 Cellulitis of right lower limb (principal); L97.312 Non-pressure chronic ulcer of right ankle with fat layer exposed; L97.518 Non-pressure chronic ulcer of other part of right foot with other specified severity; I87.2 Venous insufficiency (chronic) (peripheral); I73.9 Peripheral vascular disease, unspecified; M21.41 Flat foot [pes planus] (acquired), right foot; L95.9 Vasculitis limited to the skin, unspecified; M32.9 Systemic lupus erythematosus, unspecified; M06.9 Rheumatoid arthritis, unspecified | CPT/HCPCS: A9270; Q4133 ==

== ENCOUNTER 2021-08-18 01:01 | Day surgery (SDC) | payer MEDICARE, OTHER | END 2021-08-18 23:19 | disposition home or self-care (01) | LOC: WOUND 01:01 | DX: L97.315 Non-pressure chronic ulcer of right ankle with muscle involvement without evidence of necrosis (principal); L97.518 Non-pressure chronic ulcer of other part of right foot with other specified severity; L95.9 Vasculitis limited to the skin, unspecified; I87.2 Venous insufficiency (chronic) (peripheral); I73.9 Peripheral vascular disease, unspecified; M21.41 Flat foot [pes planus] (acquired), right foot ==

== ENCOUNTER 2021-08-25 00:57 | Day surgery (SDC) | payer MEDICARE, OTHER | END 2021-08-25 23:22 | disposition home or self-care (01) | LOC: WOUND 00:57 | DX: L97.518 Non-pressure chronic ulcer of other part of right foot with other specified severity (principal); I87.2 Venous insufficiency (chronic) (peripheral); L97.302 Non-pressure chronic ulcer of unspecified ankle with fat layer exposed; L95.9 Vasculitis limited to the skin, unspecified; I73.9 Peripheral vascular disease, unspecified; M21.41 Flat foot [pes planus] (acquired), right foot | CPT/HCPCS: A9270 ==

== ENCOUNTER 2021-09-01 00:17 | Day surgery (SDC) | payer MEDICARE, OTHER | END 2021-09-01 23:03 | disposition home or self-care (01) | LOC: WOUND 00:17 | DX: L97.512 Non-pressure chronic ulcer of other part of right foot with fat layer exposed (principal); L95.9 Vasculitis limited to the skin, unspecified; I87.2 Venous insufficiency (chronic) (peripheral); I73.9 Peripheral vascular disease, unspecified; M21.41 Flat foot [pes planus] (acquired), right foot; M06.9 Rheumatoid arthritis, unspecified; M32.9 Systemic lupus erythematosus, unspecified | CPT/HCPCS: A9270 ==

== ENCOUNTER 2021-09-08 01:29 | Day surgery (SDC) | payer MEDICARE, OTHER | END 2021-09-08 23:22 | disposition home or self-care (01) | LOC: WOUND 01:29 | DX: L97.512 Non-pressure chronic ulcer of other part of right foot with fat layer exposed (principal); I87.2 Venous insufficiency (chronic) (peripheral); L95.9 Vasculitis limited to the skin, unspecified; M21.41 Flat foot [pes planus] (acquired), right foot; M06.9 Rheumatoid arthritis, unspecified; M32.9 Systemic lupus erythematosus, unspecified | CPT/HCPCS: A9270 ==

== ENCOUNTER 2021-09-15 01:19 | Day surgery (SDC) | payer MEDICARE, OTHER | END 2021-09-15 23:26 | disposition home or self-care (01) | LOC: WOUND 01:19 | DX: L97.302 Non-pressure chronic ulcer of unspecified ankle with fat layer exposed (principal); L97.518 Non-pressure chronic ulcer of other part of right foot with other specified severity; I87.2 Venous insufficiency (chronic) (peripheral); L95.9 Vasculitis limited to the skin, unspecified; I73.9 Peripheral vascular disease, unspecified; M21.41 Flat foot [pes planus] (acquired), right foot ==

== ENCOUNTER 2021-09-22 03:04 | Day surgery (SDC) | payer MEDICARE, OTHER | END 2021-09-22 23:15 | disposition home or self-care (01) | LOC: WOUND 03:04 | DX: L97.518 Non-pressure chronic ulcer of other part of right foot with other specified severity (principal); I87.2 Venous insufficiency (chronic) (peripheral); L03.115 Cellulitis of right lower limb; I73.9 Peripheral vascular disease, unspecified; M21.41 Flat foot [pes planus] (acquired), right foot; L95.9 Vasculitis limited to the skin, unspecified; M32.9 Systemic lupus erythematosus, unspecified; M06.9 Rheumatoid arthritis, unspecified | CPT/HCPCS: A9270 ==

== ENCOUNTER 2021-09-29 01:12 | Day surgery (SDC) | payer MEDICARE, OTHER | END 2021-09-29 22:47 | disposition home or self-care (01) | LOC: WOUND 01:12 | DX: L97.518 Non-pressure chronic ulcer of other part of right foot with other specified severity (principal); I87.2 Venous insufficiency (chronic) (peripheral); L95.9 Vasculitis limited to the skin, unspecified; I73.9 Peripheral vascular disease, unspecified; M21.41 Flat foot [pes planus] (acquired), right foot | CPT/HCPCS: G0463 ==

== ENCOUNTER 2023-09-27 09:00 | Emergency (ER) | payer MEDICARE, OTHER ==
[~2023-09-27] VITALS: Ht 149.9 cm; Wt 49.9 kg
[2023-09-27 10:34] VITALS: BP 156/109
[2023-09-27] MEDS ORDERED: CEPH500 PO (10:40)
[2023-09-27] MEDS ORDERED: Bactrim Ds Tab1 EACH PO (10:40)
[2023-09-30] MEDS ORDERED: POTA10T PO (16:21)
[2023-09-30] MEDS ORDERED: LISI5 PO (16:21)
[2023-09-30] MEDS ORDERED: ALEN70 PO (16:22)
== END 2023-09-27 10:40 | disposition home or self-care (01) ==
LOC: ER 09:00
DX: L03.031 Cellulitis of right toe (principal); Z88.0 Allergy status to penicillin; Z79.899 Other long term (current) drug therapy; M06.9 Rheumatoid arthritis, unspecified
CPT/HCPCS: 99282

== ENCOUNTER 2023-09-30 11:53 | Inpatient (IN) | payer MEDICARE, OTHER ==
[~2023-09-30] VITALS: Ht 149.9 cm; Wt 76.0 kg
[2023-10-08 11:08] VITALS: BP 111/48
== END 2023-10-08 12:08 | DRG 871 ==
LOC: ER 11:53 → ICUE 14:03 → PCU 10-05 18:29
PROVIDERS: ADMIT Family Medicine
PROC: 02H633Z Insertion of Infusion Device into Right Atrium, Percutaneous Approach (ICD-10-PCS; principal; 2023-09-30)
PROC: 3E03329 Introduction of Other Anti-infective into Peripheral Vein, Percutaneous Approach (ICD-10-PCS; 2023-09-30)
PROC: 3E033XZ Introduction of Vasopressor into Peripheral Vein, Percutaneous Approach (ICD-10-PCS; 2023-09-30)
PROC: 3E043XZ Introduction of Vasopressor into Central Vein, Percutaneous Approach (ICD-10-PCS; 2023-09-30)
DX: A41.01 Sepsis due to Methicillin susceptible Staphylococcus aureus (principal); R65.21 Severe sepsis with septic shock; N39.0 Urinary tract infection, site not specified; N17.9 Acute kidney failure, unspecified; E87.20 Acidosis, unspecified; I50.30 Unspecified diastolic (congestive) heart failure; D62 Acute posthemorrhagic anemia; E87.0 Hyperosmolality and hypernatremia; Z66 Do not resuscitate; E87.5 Hyperkalemia; R09.02 Hypoxemia; M06.9 Rheumatoid arthritis, unspecified; L89.152 Pressure ulcer of sacral region, stage 2; I11.0 Hypertensive heart disease with heart failure; R13.10 Dysphagia, unspecified; R19.7 Diarrhea, unspecified; E83.51 Hypocalcemia; E87.6 Hypokalemia; Z96.642 Presence of left artificial hip joint; Z60.2 Problems related to living alone; Z74.01 Bed confinement status; Z88.0 Allergy status to penicillin

== ENCOUNTER 2023-11-17 12:36 | Emergency (ER) | payer MEDICARE, OTHER ==
[~2023-11-17] VITALS: Ht 149.9 cm; Wt 65.8 kg
[~2023-11-17 12:36] MED LIST changes: +ALEN70 PO; +ASCO500 PO; +Bactrim Ds Tab1 EACH PO; +CEPH500 PO; -CHOL10002 PO; +Colace100 MG PO; +FERSU300 PO; +JUVEN PACKET1 EAC3 PO; +K-PHOS NEUTRAL PO; +LISI5 PO; +MICONAZOLE NITR85 GM TOP; +MIDO5 PO; +ONE DAILY ESS400 MCG PO; +PANT20 PO; +POTA10T PO; +PROBIOTIC1 EA13 PO; +VITAMIN D31000 UNI1 PO; +ZINC220 PO
[2023-11-17] MEDS ORDERED: Acetaminophen650 M1 PO (13:17)
[2023-11-17 13:19] LABS: BASOPHILS ABSOLUTE AUTO 0.05 K/mm3 (0.00-0.23); BASOPHILS PERCENT AUTO 1 % (0-2); EOSINOPHILS ABSOLUTE AUTO 0.18 K/mm3 (0.00-0.68); EOSINOPHILS PERCENT AUTO 3 % (0-6); Hematocrit 23.9 % (33.0-51.0); Hemoglobin 7.4 g/dL (11.5-16.0); IMMATURE GRAN ABSOLUTE AUTO 0.06 K/mm3 (0.00-0.10); IMMATURE GRAN PERCENT AUTO 1 % (0-1); LYMPHOCYTES ABSOLUTE AUTO 0.59 K/mm3 (0.84-5.20); LYMPHOCYTES PERCENT AUTO 9 % (21-46); MONOCYTES ABSOLUTE AUTO 0.57 K/mm3 (0.16-1.47); MONOCYTES PERCENT AUTO 8 % (4-13); Mean Corpuscular HGB 28.8 pg (26.0-34.0); Mean Corpuscular Volume 93 fL (80-100); Mean Platelet Volume 8.7 fL (9.1-12.4); NEUTROPHILS ABSOLUTE AUTO 5.47 K/mm3 (1.96-9.15); NEUTROPHILS PERCENT AUTO 79 % (41-73); Platelet Count 386 K/mm3 (150-400); RDW Coefficient Variation 15.6 % (11.7-14.2); RDW Standard Deviation 52.6 fL (35.1-46.3); Red Blood Cell Count 2.57 M/mm3 (3.80-5.20); White Blood Cell Count 6.92 K/mm3 (4.00-11.30)
[2023-11-17] MEDS ORDERED: MIRALAX17 GM PO (13:19)
[2023-11-17] MEDS ORDERED: BENZ100A PO (13:20)
[2023-11-17] MEDS ORDERED: SENN187 PO (13:20)
[2023-11-17 13:56] LABS: Albumin/Globulin Ratio 0.4 (0.8-1.8); Bilirubin, Total 0.4 mg/dL (0.1-1.0); Bun/Creatinine Ratio 15.2 (12.0-20.0); Calcium, Blood 7.4 mg/dL (8.5-10.1); Creatinine, Blood 1.32 mg/dL (0.40-1.00); Globulin, Blood 4.5 g/dL (2.2-4.0); Total Protein, Blood 6.5 g/dL (6.4-8.2)
[2023-11-17] MEDS ORDERED: NS 1,000 ML IV ONE (15:38)
[2023-11-17] MEDS ORDERED: NS 1,000 ML IV SCH (16:25)
[2023-11-17 18:16] VITALS: BP 131/64
== END 2023-11-17 18:35 | disposition home or self-care (01) ==
LOC: ER 12:36
PROVIDERS: Emergency Medicine
DX: D64.9 Anemia, unspecified (principal); M06.9 Rheumatoid arthritis, unspecified; I10 Essential (primary) hypertension
CPT/HCPCS: 36430; 71046; 80053; 83880; 84484; 85025; 86850; 86900; 86901; 86923; 93005; 93010; 99284-25; J7030; P9016

== ENCOUNTER → 2023-12-13 | Outpatient (CLI) | payer MEDICARE, OTHER ==
[~2023-12-13] MED LIST changes: +Acetaminophen650 M1 PO; +MIRALAX17 GM PO; +SENN187 PO
== END ==
LOC: LAB 16:03 → LAB SHORT 16:03
DX: N39.0 Urinary tract infection, site not specified (principal)
CPT/HCPCS: 87077; 87086; 87186

== ENCOUNTER → 2024-02-21 | Outpatient (CLI) | payer MEDICARE, OTHER ==
[2024-02-21 13:30] LABS: BASOPHILS ABSOLUTE AUTO 0.03 K/mm3 (0.00-0.23); BASOPHILS PERCENT AUTO 1 % (0-2); EOSINOPHILS ABSOLUTE AUTO 0.12 K/mm3 (0.00-0.68); EOSINOPHILS PERCENT AUTO 3 % (0-6); Hematocrit 25.8 % (33.0-51.0); Hemoglobin 8.1 g/dL (11.5-16.0); IMMATURE GRAN ABSOLUTE AUTO 0.01 K/mm3 (0.00-0.10); IMMATURE GRAN PERCENT AUTO 0 % (0-1); LYMPHOCYTES ABSOLUTE AUTO 0.69 K/mm3 (0.84-5.20); LYMPHOCYTES PERCENT AUTO 17 % (21-46); MONOCYTES ABSOLUTE AUTO 0.43 K/mm3 (0.16-1.47); MONOCYTES PERCENT AUTO 11 % (4-13); Mean Corpuscular HGB 29.2 pg (26.0-34.0); Mean Corpuscular HGB Conc 31.4 g/dL (31.5-36.5); Mean Corpuscular Volume 93 fL (80-100); Mean Platelet Volume 9.5 fL (9.1-12.4); NEUTROPHILS ABSOLUTE AUTO 2.75 K/mm3 (1.96-9.15); NEUTROPHILS PERCENT AUTO 68 % (41-73); Platelet Count 326 K/mm3 (150-400); RDW Coefficient Variation 14.6 % (11.7-14.2); RDW Standard Deviation 49.7 fL (35.1-46.3); Red Blood Cell Count 2.77 M/mm3 (3.80-5.20); White Blood Cell Count 4.03 K/mm3 (4.00-11.30)
[2024-02-21 15:26] LABS: Albumin, Blood 2.8 g/dL (3.4-5.0); Albumin/Globulin Ratio 0.6 (0.8-1.8); Bilirubin, Total 0.5 mg/dL (0.1-1.0); Bun/Creatinine Ratio 23.4 (12.0-20.0); Creatinine, Blood 0.9 mg/dL (0.40-1.00); Globulin, Blood 4.9 g/dL (2.2-4.0); Potassium, Blood 3.7 mmol/L (3.5-5.5); Total Protein, Blood 7.7 g/dL (6.4-8.2)
== END ==
LOC: LAB 11:39 → LAB SHORT 11:39
PROVIDERS: Registered Nurse Oncology
DX: D63.8 Anemia in other chronic diseases classified elsewhere (principal); D50.9 Iron deficiency anemia, unspecified
CPT/HCPCS: 80053; 85025

== ENCOUNTER 2024-05-21 12:12 | Inpatient (IN) | payer MEDICARE, OTHER ==
[~2024-05-21] VITALS: Ht 149.9 cm; Wt 47.0 kg
[~2024-05-21 12:12] MED LIST changes: -ONE DAILY ESS400 MCG PO; +PRESERVISION A1 EAC1 PO
[2024-05-21 12:56] LABS: BASOPHILS ABSOLUTE AUTO 0.06 K/mm3 (0.00-0.23); BASOPHILS PERCENT AUTO 1 % (0-2); EOSINOPHILS ABSOLUTE AUTO 0.14 K/mm3 (0.00-0.68); EOSINOPHILS PERCENT AUTO 2 % (0-6); Hematocrit 20.6 % (33.0-51.0); Hemoglobin 6.6 g/dL (11.5-16.0); IMMATURE GRAN ABSOLUTE AUTO 0.06 K/mm3 (0.00-0.10); IMMATURE GRAN PERCENT AUTO 1 % (0-1); LYMPHOCYTES ABSOLUTE AUTO 0.75 K/mm3 (0.84-5.20); LYMPHOCYTES PERCENT AUTO 9 % (21-46); MONOCYTES ABSOLUTE AUTO 0.68 K/mm3 (0.16-1.47); MONOCYTES PERCENT AUTO 9 % (4-13); Mean Corpuscular HGB 31.3 pg (26.0-34.0); Mean Corpuscular Volume 98 fL (80-100); Mean Platelet Volume 8.4 fL (9.1-12.4); NEUTROPHILS PERCENT AUTO 79 % (41-73); Platelet Count 320 K/mm3 (150-400); RDW Coefficient Variation 13.7 % (11.7-14.2); RDW Standard Deviation 49.4 fL (35.1-46.3); Red Blood Cell Count 2.11 M/mm3 (3.80-5.20); White Blood Cell Count 7.99 K/mm3 (4.00-11.30)
[2024-05-21 13:32] LABS: Albumin, Blood 1.9 g/dL (3.4-5.0); Albumin/Globulin Ratio 0.4 (0.8-1.8); Bilirubin, Total 0.4 mg/dL (0.1-1.0); Bun/Creatinine Ratio 11.9 (12.0-20.0); Calcium, Blood 6.3 mg/dL (8.5-10.1); Creatinine, Blood 4.72 mg/dL (0.40-1.00); Globulin, Blood 5.1 g/dL (2.2-4.0); Potassium, Blood 4.5 mmol/L (3.5-5.5)
[2024-05-21] MEDS ORDERED: Etomidate 2MG / ML 10ML Vial XX ONE (16:15)
[2024-05-21] MEDS ORDERED: FLU VACC TS2024-25(6MOS UP)/PF 45 MCG/0.5 ML SYRINGE IM ONE (17:25)
[2024-05-21] MEDS ORDERED: Acetaminophen 325 MG TABLET PO PRN (17:30)
[2024-05-21] MEDS ORDERED: Arginine/Glutamine/Calcium Hmb 1 Packet PO SCH (21:00)
[2024-05-21] MEDS ORDERED: Sodium Bicarbonate 650 MG Tab PO SCH (21:00)
[2024-05-21] MEDS ORDERED: Docusate Sodium 100 MG Cap PO SCH (21:00)
[2024-05-21] MEDS ORDERED: Miconazole Nitrate 2% 85 GM PWD TOP SCH (21:00)
[2024-05-21 21:07] VITALS: BP 129/64
[2024-05-22] VITALS (7 sets, daily range): BP systolic 116–145; BP diastolic 52–71
[2024-05-22] MEDS ORDERED: Pantoprazole Sodium 20 MG Tab PO SCH (06:00)
[2024-05-22 06:18] LABS: Hemoglobin 7.1 g/dL (11.5-16.0)
[2024-05-22 06:38] LABS: Magnesium, Blood 1.6 mg/dL (1.6-2.4)
[2024-05-22 06:39] LABS: Uric Acid, Blood 4.6 mg/dL (2.6-6.0)
[2024-05-22 06:58] LABS: Alanine Aminotransfer (ALT/SGP <6 U/L (12-78); Albumin, Blood 1.8 g/dL (3.4-5.0); Albumin/Globulin Ratio 0.4 (0.8-1.8); Alk Phos 74 U/L (50-136); Anion Gap 17 mmol/L (3-11); Aspartate Aminotrans (AST/SGOT 8 U/L (12-37); Bilirubin, Direct 0.1 mg/dL (0.0-0.3); Bilirubin, Indirect 0.3 mg/dL (0.1-0.7); Bilirubin, Total 0.4 mg/dL (0.1-1.0); Blood Urea Nitrogen 62 mg/dL (8-24); Bun/Creatinine Ratio 12.6 (12.0-20.0); CO2, Blood 19 mmol/L (21-32); Calcium, Blood 6.3 mg/dL (8.5-10.1); Chloride, Blood 112 mmol/L (98-108); Creatinine, Blood 4.94 mg/dL (0.40-1.00); Globulin, Blood 4.7 g/dL (2.2-4.0); Glomerular Filtration Rate 9 (60-); Glucose, Blood 88 mg/dL (70-99); Phosphorus, Blood 11.2 mg/dL (2.5-4.9); Potassium, Blood 4.3 mmol/L (3.5-5.5); Sodium, Blood 144 mmol/L (136-145); Total Protein, Blood 6.5 g/dL (6.4-8.2)
[2024-05-22] MEDS ORDERED: Albumin Human 50 ML IV SCH ×2 (09:00)
[2024-05-22] MEDS ORDERED: Polyethylene Glycol 3350 17 gm PO SCH (09:00)
[2024-05-22] MEDS ORDERED: Sodium Bicarbonate 650 MG Tab PO SCH (09:00)
[2024-05-22] MEDS ORDERED: Bumetanide 0.25 MG/ML 4ML ViaL IV SCH ×2 (09:00)
[2024-05-22] MEDS ORDERED: Calcium Acetate 667 MG Gel Cap PO SCH (09:00)
[2024-05-22] MEDS ORDERED: Cholecalciferol 1000 Unit Tablet (=25MCG) PO SCH (09:00)
[2024-05-22] MEDS ORDERED: Potassium Chloride 10 Meq Tablet SA PO SCH (09:00)
[2024-05-22] MEDS ORDERED: Zinc Sulfate 220 MG Cap (Provides 50MG) PO SCH (09:00)
[2024-05-22 11:44] LABS: Hematocrit 20.1 % (33.0-51.0); Hemoglobin 6.6 g/dL (11.5-16.0)
[2024-05-22] MEDS ORDERED: Ascorbic Acid 500 MG Tab PO SCH (12:00)
[2024-05-22 12:21] LABS: Percent Saturation 44.9 % (15.0-50.0)
[2024-05-22] MEDS ORDERED: NS 500 ML IV ONE (12:36)
[2024-05-22] MEDS ORDERED: NS 500 ML IR SCH (12:45)
[2024-05-22] MEDS ORDERED: NS 500 ML IV SCH (13:55)
[2024-05-22] MEDS ORDERED: HUMIRA(CF)40 MG/0.4 PO (16:40)
[2024-05-22 20:42] LABS: Hematocrit 21.6 % (33.0-51.0); Hemoglobin 7.2 g/dL (11.5-16.0)
[2024-05-23] VITALS (8 sets, daily range): BP systolic 108–144; BP diastolic 54–67
[2024-05-23 05:18] LABS: Hematocrit 20.8 % (33.0-51.0); Hemoglobin 6.9 g/dL (11.5-16.0)
[2024-05-23 05:54] LABS: Magnesium, Blood 1.8 mg/dL (1.6-2.4)
[2024-05-23 06:18] LABS: Albumin, Blood 1.7 g/dL (3.4-5.0); Anion Gap 18 mmol/L (3-11); Blood Urea Nitrogen 65 mg/dL (8-24); Bun/Creatinine Ratio 12.3 (12.0-20.0); CO2, Blood 18 mmol/L (21-32); Calcium, Blood 6.4 mg/dL (8.5-10.1); Chloride, Blood 111 mmol/L (98-108); Creatinine, Blood 5.28 mg/dL (0.40-1.00); Glomerular Filtration Rate 8 (60-); Glucose, Blood 70 mg/dL (70-99); Phosphorus, Blood 10.1 mg/dL (2.5-4.9); Potassium, Blood 4.2 mmol/L (3.5-5.5); Sodium, Blood 143 mmol/L (136-145)
[2024-05-23] MEDS ORDERED: Lactated Ringer's 1,000 ML IV SCH ×2 (12:40→12:55)
[2024-05-23] MEDS ORDERED: NS 500 ML IV SCH (13:10)
[2024-05-23] MEDS ORDERED: Lidocaine HCl 4% 5 ML SDA ONE (13:32)
[2024-05-23] MEDS ORDERED: NS 500 ML IV ONE ×2 (15:31→15:46)
[2024-05-23] MEDS ORDERED: Heparin Sodium 1000 Units/ML 10ML MDV ONE (15:31)
[2024-05-23] MEDS ORDERED: FentaNYL Citrate 50 MCG/ML 2 ML Injection ONE (15:46)
[2024-05-23] MEDS ORDERED: Midazolam HCl 1MG / ML 2ML Vial ONE (15:46)
[2024-05-24] VITALS (17 sets, daily range): BP systolic 110–140; BP diastolic 51–66
[2024-05-24 05:06] LABS: Hematocrit 27.4 % (33.0-51.0); Hemoglobin 9.1 g/dL (11.5-16.0)
[2024-05-24 05:41] LABS: Magnesium, Blood 1.7 mg/dL (1.6-2.4)
[2024-05-24 06:10] LABS: Albumin, Blood 1.7 g/dL (3.4-5.0); Anion Gap 17 mmol/L (3-11); Blood Urea Nitrogen 79 mg/dL (8-24); Bun/Creatinine Ratio 14.3 (12.0-20.0); CO2, Blood 18 mmol/L (21-32); Calcium, Blood 6.2 mg/dL (8.5-10.1); Chloride, Blood 110 mmol/L (98-108); Creatinine, Blood 5.51 mg/dL (0.40-1.00); Glomerular Filtration Rate 8 (60-); Glucose, Blood 88 mg/dL (70-99); Phosphorus, Blood 10.9 mg/dL (2.5-4.9); Potassium, Blood 4.2 mmol/L (3.5-5.5); Sodium, Blood 141 mmol/L (136-145)
[2024-05-24] MEDS ORDERED: Anticoagulant Sod Citrate Soln 3 ML SYR INJ PRN (07:10)
[2024-05-24] MEDS ORDERED: Albumin (Human) 25gm/100ml 100 ML IV PRN (07:15)
[2024-05-24 07:27] LABS: GBM, IGG MULTIPLEX BEAD ASSAY 0 AU/mL (0-19); MYELOPEROXIDASE (MPO) AB,IGG 0 AU/mL (0-19); SERINE PROTEINASE 3 PR3 AB,IGG 32 AU/mL (0-19)
[2024-05-24 11:42] LABS: ANTINUCLEAR AB (ANA),HEP-2,IGG <1:80 (<1:80)
[2024-05-24 20:13] LABS: ANCA IFA TITER >1:1280 (<1:20)
[2024-05-24 22:19] LABS: Source, Urine Voided
[2024-05-24 22:33] LABS: Bilirubin, Urine Neg (Neg); Blood, Urine 5+ (Neg); Glucose Qualitative, Urine Neg (Neg); Ketones, Urine 2+ (Neg); Leukocyte Esterase, Urine 2+ (Neg); Nitrite, Urine Neg (Neg); Protein, Urine 4+ (Neg); Urobilinogen, Urine NORM (Normal); pH, Urine 6.5 (5.0-8.0)
[2024-05-24 22:37] LABS: Appearance, Urine Turbid (Clear); Color, Urine Red (P-Yellow)
[2024-05-24 22:43] LABS: Amorphous Not Seen (0-Heavy); Bacteria Mod /hpf; Red Blood Cells, Urine TNTC /hpf (0-2); Squamous Epithelial Cells Not Seen /hpf (Few)
[2024-05-25] VITALS (18 sets, daily range): BP systolic 119–153; BP diastolic 51–75
[2024-05-25 05:49] LABS: Hematocrit 27.5 % (33.0-51.0); Hemoglobin 9.1 g/dL (11.5-16.0)
[2024-05-25 06:07] LABS: Magnesium, Blood 1.7 mg/dL (1.6-2.4)
[2024-05-25 06:44] LABS: Albumin, Blood 1.8 g/dL (3.4-5.0); Anion Gap 14 mmol/L (3-11); Blood Urea Nitrogen 53 mg/dL (8-24); Bun/Creatinine Ratio 12.6 (12.0-20.0); CO2, Blood 22 mmol/L (21-32); Calcium, Blood 7.4 mg/dL (8.5-10.1); Chloride, Blood 105 mmol/L (98-108); Creatinine, Blood 4.21 mg/dL (0.40-1.00); Glomerular Filtration Rate 11 (60-); Glucose, Blood 76 mg/dL (70-99); Potassium, Blood 3.4 mmol/L (3.5-5.5); Sodium, Blood 138 mmol/L (136-145)
[2024-05-25] MEDS ORDERED: Anticoagulant Sod Citrate Soln 3 ML SYR INJ PRN (07:10)
[2024-05-25] MEDS ORDERED: Potassium Chloride 10 Meq Tablet SA PO ONE (07:10)
[2024-05-25 13:36] LABS: HEPATITIS B SURFACE ANTIGEN Negative (Negative)
[2024-05-25 14:06] LABS: HBV CORE ANTIBODIES,TOTAL Negative (Negative)
[2024-05-25 16:24] LABS: HEPATITIS A ANTIBODY, IGM Negative (Negative); HEPATITIS B CORE ANTIBODY, IGM Negative (Negative); HEPATITIS B SURFACE ANTIGEN Negative (Negative); HEPATITIS C AB CIA INTERP Negative (Negative); HEPATITIS C ANTIBODY CIA INDEX 0.14 IV
[2024-05-26] VITALS (13 sets, daily range): BP systolic 108–151; BP diastolic 55–67
[2024-05-26 05:30] LABS: Hematocrit 27.1 % (33.0-51.0); Hemoglobin 8.9 g/dL (11.5-16.0)
[2024-05-26 06:05] LABS: Magnesium, Blood 1.7 mg/dL (1.6-2.4)
[2024-05-26 06:06] LABS: Albumin, Blood 1.7 g/dL (3.4-5.0); Anion Gap 11 mmol/L (3-11); Blood Urea Nitrogen 31 mg/dL (8-24); Bun/Creatinine Ratio 9.6 (12.0-20.0); CO2, Blood 28 mmol/L (21-32); Calcium, Blood 7.6 mg/dL (8.5-10.1); Chloride, Blood 101 mmol/L (98-108); Creatinine, Blood 3.24 mg/dL (0.40-1.00); Glomerular Filtration Rate 15 (60-); Glucose, Blood 96 mg/dL (70-99); Phosphorus, Blood 4.5 mg/dL (2.5-4.9); Potassium, Blood 3.2 mmol/L (3.5-5.5); Sodium, Blood 137 mmol/L (136-145)
[2024-05-26] MEDS ORDERED: Potassium Chloride 20 MEQ TabCR PO ONE ×2 (06:35→11:00)
[2024-05-26] MEDS ORDERED: Anticoagulant Sod Citrate Soln 3 ML SYR INJ PRN (07:40)
[2024-05-27 04:48] VITALS: BP 117/54
[2024-05-27 05:20] LABS: Hemoglobin 8.9 g/dL (11.5-16.0)
[2024-05-27 05:47] LABS: Albumin, Blood 1.8 g/dL (3.4-5.0); Anion Gap 11 mmol/L (3-11); Blood Urea Nitrogen 22 mg/dL (8-24); Bun/Creatinine Ratio 7.5 (12.0-20.0); CO2, Blood 28 mmol/L (21-32); Calcium, Blood 8.3 mg/dL (8.5-10.1); Chloride, Blood 103 mmol/L (98-108); Creatinine, Blood 2.92 mg/dL (0.40-1.00); Glomerular Filtration Rate 17 (60-); Glucose, Blood 85 mg/dL (70-99); Magnesium, Blood 1.9 mg/dL (1.6-2.4); Phosphorus, Blood 2.4 mg/dL (2.5-4.9); Sodium, Blood 137 mmol/L (136-145)
[2024-05-27] MEDS ORDERED: Sodium Phosphate 10 MM in Dextrose 5% 250 ML IV ONE (07:30)
[2024-05-27 07:54] VITALS: BP 136/59
[2024-05-27] MEDS ORDERED: Bumetanide 1 MG Tab PO SCH (09:00)
[2024-05-27 15:42] VITALS: BP 144/70
[2024-05-27] MEDS ORDERED: Darbepoetin Alfa in Polysorbat 25 MCG/0.42 ML Syringe SC SCH (16:00)
[2024-05-27 20:04] VITALS: BP 135/64
[2024-05-28] VITALS (17 sets, daily range): BP systolic 111–146; BP diastolic 54–76
[2024-05-28 04:58] LABS: Hematocrit 27.2 % (33.0-51.0); Hemoglobin 8.7 g/dL (11.5-16.0)
[2024-05-28 05:28] LABS: Albumin, Blood 1.9 g/dL (3.4-5.0); Anion Gap 11 mmol/L (3-11); Blood Urea Nitrogen 32 mg/dL (8-24); Bun/Creatinine Ratio 8.1 (12.0-20.0); CO2, Blood 27 mmol/L (21-32); Calcium, Blood 7.9 mg/dL (8.5-10.1); Chloride, Blood 103 mmol/L (98-108); Creatinine, Blood 3.97 mg/dL (0.40-1.00); Glomerular Filtration Rate 11 (60-); Glucose, Blood 89 mg/dL (70-99); Magnesium, Blood 1.6 mg/dL (1.6-2.4); Phosphorus, Blood 3.3 mg/dL (2.5-4.9); Sodium, Blood 136 mmol/L (136-145)
[2024-05-28] MEDS ORDERED: Anticoagulant Sod Citrate Soln 3 ML SYR INJ PRN (07:25)
[2024-05-29 04:50] VITALS: BP 117/57
[2024-05-29 05:31] LABS: Hemoglobin 8.6 g/dL (11.5-16.0)
[2024-05-29 07:02] VITALS: BP 122/54
[2024-05-29 08:14] LABS: Anion Gap 10 mmol/L (3-11); Blood Urea Nitrogen 24 mg/dL (8-24); Bun/Creatinine Ratio 7.5 (12.0-20.0); CO2, Blood 29 mmol/L (21-32); Calcium, Blood 7.8 mg/dL (8.5-10.1); Chloride, Blood 101 mmol/L (98-108); Creatinine, Blood 3.18 mg/dL (0.40-1.00); Glomerular Filtration Rate 15 (60-); Glucose, Blood 90 mg/dL (70-99); Magnesium, Blood 1.8 mg/dL (1.6-2.4); Phosphorus, Blood 2.7 mg/dL (2.5-4.9); Potassium, Blood 4.2 mmol/L (3.5-5.5); Sodium, Blood 136 mmol/L (136-145)
[2024-05-29 15:15] VITALS: BP 128/67
[2024-05-29 20:04] VITALS: BP 145/72
[2024-05-30] VITALS (14 sets, daily range): BP systolic 114–143; BP diastolic 51–66
[2024-05-30 07:30] LABS: Albumin, Blood 2.1 g/dL (3.4-5.0); Anion Gap 14 mmol/L (3-11); Blood Urea Nitrogen 37 mg/dL (8-24); Bun/Creatinine Ratio 8.6 (12.0-20.0); CO2, Blood 28 mmol/L (21-32); Chloride, Blood 100 mmol/L (98-108); Creatinine, Blood 4.32 mg/dL (0.40-1.00); Glomerular Filtration Rate 10 (60-); Glucose, Blood 85 mg/dL (70-99); Magnesium, Blood 1.8 mg/dL (1.6-2.4); Phosphorus, Blood 3.3 mg/dL (2.5-4.9); Potassium, Blood 4.5 mmol/L (3.5-5.5); Sodium, Blood 137 mmol/L (136-145)
[2024-05-30] MEDS ORDERED: Anticoagulant Sod Citrate Soln 3 ML SYR INJ PRN (07:35)
[2024-05-31 02:20] VITALS: BP 117/56
[2024-05-31 04:55] LABS: Hematocrit 28.3 % (33.0-51.0); Hemoglobin 8.7 g/dL (11.5-16.0)
[2024-05-31 05:08] LABS: Albumin, Blood 2.2 g/dL (3.4-5.0); Anion Gap 9 mmol/L (3-11); Blood Urea Nitrogen 27 mg/dL (8-24); Bun/Creatinine Ratio 7.2 (12.0-20.0); CO2, Blood 31 mmol/L (21-32); Calcium, Blood 8.2 mg/dL (8.5-10.1); Chloride, Blood 105 mmol/L (98-108); Creatinine, Blood 3.74 mg/dL (0.40-1.00); Glomerular Filtration Rate 12 (60-); Glucose, Blood 88 mg/dL (70-99); Magnesium, Blood 1.9 mg/dL (1.6-2.4); Potassium, Blood 3.8 mmol/L (3.5-5.5); Sodium, Blood 141 mmol/L (136-145)
[2024-05-31 07:21] VITALS: BP 132/62
[2024-05-31 15:18] LABS: HEPATITIS B SURFACE ANTIBODY <3.10 IU/L
[2024-05-31 15:52] VITALS: BP 133/62
[2024-05-31 19:52] VITALS: BP 129/64
[2024-06-01] VITALS (19 sets, daily range): BP systolic 105–149; BP diastolic 47–66
[2024-06-01] MEDS ORDERED: Anticoagulant Sod Citrate Soln 3 ML SYR INJ PRN (07:15)
[2024-06-02 04:43] VITALS: BP 122/56
[2024-06-02 05:13] LABS: Hemoglobin 8.5 g/dL (11.5-16.0)
[2024-06-02 05:28] LABS: Albumin, Blood 2.3 g/dL (3.4-5.0); Anion Gap 8 mmol/L (3-11); Blood Urea Nitrogen 23 mg/dL (8-24); Bun/Creatinine Ratio 7.1 (12.0-20.0); CO2, Blood 32 mmol/L (21-32); Calcium, Blood 8.7 mg/dL (8.5-10.1); Chloride, Blood 100 mmol/L (98-108); Creatinine, Blood 3.26 mg/dL (0.40-1.00); Glomerular Filtration Rate 14 (60-); Glucose, Blood 92 mg/dL (70-99); Magnesium, Blood 1.8 mg/dL (1.6-2.4); Phosphorus, Blood 2.8 mg/dL (2.5-4.9); Potassium, Blood 3.6 mmol/L (3.5-5.5); Sodium, Blood 136 mmol/L (136-145)
[2024-06-02 07:19] VITALS: BP 123/51
[2024-06-02 15:30] VITALS: BP 114/54
[2024-06-02 19:27] VITALS: BP 118/52
[2024-06-03] VITALS (14 sets, daily range): BP systolic 118–133; BP diastolic 53–62
[2024-06-03 05:34] LABS: Hematocrit 26.2 % (33.0-51.0); Hemoglobin 8.1 g/dL (11.5-16.0)
[2024-06-03 06:11] LABS: Albumin, Blood 2.3 g/dL (3.4-5.0); Anion Gap 10 mmol/L (3-11); Blood Urea Nitrogen 38 mg/dL (8-24); Bun/Creatinine Ratio 8.3 (12.0-20.0); CO2, Blood 30 mmol/L (21-32); Calcium, Blood 8.5 mg/dL (8.5-10.1); Chloride, Blood 100 mmol/L (98-108); Creatinine, Blood 4.59 mg/dL (0.40-1.00); Glomerular Filtration Rate 10 (60-); Glucose, Blood 88 mg/dL (70-99); Phosphorus, Blood 3.3 mg/dL (2.5-4.9); Potassium, Blood 3.8 mmol/L (3.5-5.5); Sodium, Blood 136 mmol/L (136-145)
[2024-06-03] MEDS ORDERED: Anticoagulant Sod Citrate Soln 3 ML SYR INJ PRN (10:30)
[2024-06-03] MEDS ORDERED: BUME2 PO (15:11)
[2024-06-03] MEDS ORDERED: DOCU100 PO (15:12)
== END 2024-06-03 16:47 | disposition home health service (06) | DRG 673 ==
LOC: ER 12:12 → MEDS 12:13 → ERHOLD 12:13 → MEDS 20:55
PROVIDERS: Internal Medicine Nephrology; Physician Assistant; Surgery; ADMIT Family Medicine
PROC: 30233N1 Transfusion of Nonautologous Red Blood Cells into Peripheral Vein, Percutaneous Approach (ICD-10-PCS; 2024-05-21)
PROC: 30233J1 Transfusion of Nonautologous Serum Albumin into Peripheral Vein, Percutaneous Approach (ICD-10-PCS; 2024-05-22)
PROC: 0DB98ZX Excision of Duodenum, Via Natural or Artificial Opening Endoscopic, Diagnostic (ICD-10-PCS; 2024-05-23)
PROC: 5A1D70Z Performance of Urinary Filtration, Intermittent, Less than 6 Hours Per Day (ICD-10-PCS; 2024-05-23)
PROC: 02HV33Z Insertion of Infusion Device into Superior Vena Cava, Percutaneous Approach (ICD-10-PCS; 2024-05-23)
PROC: B518ZZA Fluoroscopy of Superior Vena Cava, Guidance (ICD-10-PCS; 2024-05-23)
PROC: 0JH63XZ Insertion of Tunneled Vascular Access Device into Chest Subcutaneous Tissue and Fascia, Percutaneous Approach (ICD-10-PCS; principal; 2024-05-23 13:00)
DX: N17.0 Acute kidney failure with tubular necrosis (principal); I50.31 Acute diastolic (congestive) heart failure; I13.2 Hypertensive heart and chronic kidney disease with heart failure and with stage 5 chronic kidney disease, or end stage renal disease; C90.00 Multiple myeloma not having achieved remission; K92.2 Gastrointestinal hemorrhage, unspecified; D62 Acute posthemorrhagic anemia; M87.9 Osteonecrosis, unspecified; E87.20 Acidosis, unspecified; N18.6 End stage renal disease; Z66 Do not resuscitate; M06.9 Rheumatoid arthritis, unspecified; Z96.642 Presence of left artificial hip joint; E11.610 Type 2 diabetes mellitus with diabetic neuropathic arthropathy; D63.1 Anemia in chronic kidney disease; E11.22 Type 2 diabetes mellitus with diabetic chronic kidney disease; M81.0 Age-related osteoporosis without current pathological fracture; E88.09 Other disorders of plasma-protein metabolism, not elsewhere classified; I89.0 Lymphedema, not elsewhere classified; E83.39 Other disorders of phosphorus metabolism; I27.20 Pulmonary hypertension, unspecified; R31.9 Hematuria, unspecified; L60.2 Onychogryphosis; E87.5 Hyperkalemia; I77.82 Antineutrophilic cytoplasmic antibody [ANCA] vasculitis; E87.6 Hypokalemia; M20.5X2 Other deformities of toe(s) (acquired), left foot; M20.5X1 Other deformities of toe(s) (acquired), right foot; K44.9 Diaphragmatic hernia without obstruction or gangrene; Z79.2 Long term (current) use of antibiotics; Z79.891 Long term (current) use of opiate analgesic; Z79.899 Other long term (current) drug therapy; Z88.0 Allergy status to penicillin; Z98.890 Other specified postprocedural states; Z28.89 Immunization not carried out for other reason; Z99.3 Dependence on wheelchair
CPT/HCPCS: 36415; 36416; 36430; 36558; 71045; 76770; 76937; 80053; 80069; 80074; 81001; 82248; 82550; 82728; 83516; 83540; 83550; 83690; 83735; 83880; 84100; 84550; 85014; 85018; 85025; 86036; 86039; 86334; 86704; 86850; 86900; 86901; 86923; 87086; 87340; 88305; 93975; 99152; 99285-25; A9270; C1750; C1769; C1894; J0881; J1644; J2003; J2250; J2470; J3010; J7040; J7060; P9016; P9047

== ENCOUNTER 2025-01-02 08:25 | Day surgery (SDC) | payer MEDICARE, OTHER ==
[2025-01-02] VITALS (10 sets, daily range): BP systolic 101–128; BP diastolic 50–63
[~2025-01-02] VITALS: Ht 149.9 cm; Wt 50.0 kg
[~2025-01-02 08:25] MED LIST changes: +Acerola C500 MG PO; +Alph-E-Mixed400 UNIT PO; +BUME2 PO; +CALCIUM CIT 311 EAC7 PO; +DOCU100 PO; +HUMIRA PEN40 MG/0.2; +HUMIRA(CF)40 MG/0.4 PO; +MULVITA PO; +Preservision S1 EACH PO; +Vitamin D1000 UNI1 PO
[2025-01-02] MEDS ORDERED: NS 1,000 ML IV ONE ×2 (10:02→10:05)
[2025-01-02] MEDS ORDERED: Verapamil HCL 2.5 MG/ML 2ML Injection ONE (10:02)
[2025-01-02] MEDS ORDERED: Heparin Sodium 1000 Units/ML 10ML MDV ONE (10:02)
[2025-01-02] MEDS ORDERED: Nitroglycerin 2 MG/20 ML BTL ONE (10:03)
[2025-01-02] MEDS ORDERED: Midazolam HCl 1MG / ML 2ML Vial ONE (10:23)
[2025-01-02] MEDS ORDERED: FentaNYL Citrate 50 MCG/ML 2 ML Injection ONE (10:24)
--- NOTE | 2025-01-02 11:40 | NUR ---
Pt to recovery room, no c/o's.
[2025-01-02] MEDS ORDERED: CLOP75 PO (12:49)
--- NOTE | 2025-01-02 13:34 | NUR ---
PT GIVEN DISCHARGE INSTRUCTIONS, VERBALIZES UNDERSTANDING OF INSTRUCTIONS. SALINE LOCK REMOVED WITH CATHETER INTACT. R ARM WITH GOOD THRILL. INSTRUCTED PT ON HOW TO FEEL FOR THRILL. PT WAITING FOR FAMILY TO PICK HER UP.
== END 2025-01-02 13:40 | disposition home or self-care (01) ==
LOC: MHTC 08:25
DX: N18.6 End stage renal disease (principal); I87.2 Venous insufficiency (chronic) (peripheral); Z79.899 Other long term (current) drug therapy; Z88.0 Allergy status to penicillin; Z99.2 Dependence on renal dialysis
CPT/HCPCS: 36836; 64415; 76937; 99152; 99153; A9270; C1725; C1769; C1889; C1894; J1644; J2250; J3010; J7030

== ENCOUNTER → 2025-02-26 | Outpatient (CLI) | payer MEDICARE, OTHER ==
[~2025-02-26] MED LIST changes: +CLOP75 PO
[2025-02-26 09:40] LABS: Hematocrit 26.9 % (33.0-51.0); Hemoglobin 8.3 g/dL (11.5-16.0); Mean Corpuscular HGB Conc 30.9 g/dL (31.5-36.5); Mean Corpuscular Volume 94 fL (80-100); NRBC ABSOLUTE 0.00 K/mm3 (0.00-0.02); NRBC Auto 0.0 /100 WBC (0.0-0.2); Platelet Count 305 K/mm3 (150-400); RDW Coefficient Variation 14.6 % (11.7-14.2); RDW Standard Deviation 50.5 fL (35.1-46.3)
[2025-02-26 09:57] LABS: Prothrombin Time Results 13.0 Sec (9.7-11.5)
[2025-02-26 11:47] LABS: Anion Gap 9.0 mmol/L (3-11); Blood Urea Nitrogen 12.0 mg/dL (8-24); CO2, Blood 34.0 mmol/L (21-32); Calcium, Blood 8.9 mg/dL (8.5-10.1); Chloride, Blood 95.0 mmol/L (98-108); Creatinine, Blood 1.53 mg/dL (0.40-1.00); Glucose, Blood 119.0 mg/dL (70-99); Potassium, Blood 2.6 mmol/L (3.5-5.5); Sodium, Blood 135.0 mmol/L (136-145)
== END | disposition home or self-care (01) ==
LOC: LAB DAV 09:33
PROVIDERS: Internal Medicine Nephrology
DX: N18.6 End stage renal disease (principal); Y83.9 Surgical procedure, unspecified as the cause of abnormal reaction of the patient, or of later complication, without mention of misadventure at the time of the procedure
CPT/HCPCS: 80048; 85027; 85610

== ENCOUNTER 2025-02-27 06:30 | Day surgery (SDC) | payer MEDICARE, OTHER ==
[~2025-02-27] VITALS: Ht 149.9 cm; Wt 51.9 kg
[2025-02-27] MEDS ORDERED: NS 1,000 ML IV ONE (07:25)
[2025-02-27] MEDS ORDERED: Heparin Sodium 1000 Units/ML 10ML MDV ONE ×2 (07:25→08:23)
[2025-02-27] MEDS ORDERED: Nitroglycerin 2 MG/20 ML BTL ONE (07:38)
[2025-02-27] MEDS ORDERED: Verapamil HCL 2.5 MG/ML 2ML Injection ONE (07:38)
[2025-02-27 08:16] LABS: BASOPHILS ABSOLUTE AUTO 0.06 K/mm3 (0.00-0.23); BASOPHILS PERCENT AUTO 1 % (0-2); EOSINOPHILS ABSOLUTE AUTO 0.29 K/mm3 (0.00-0.68); EOSINOPHILS PERCENT AUTO 4 % (0-6); Hematocrit 29.4 % (33.0-51.0); Hemoglobin 9.1 g/dL (11.5-16.0); IMMATURE GRAN ABSOLUTE AUTO 0.02 K/mm3 (0.00-0.10); IMMATURE GRAN PERCENT AUTO 0 % (0-1); LYMPHOCYTES ABSOLUTE AUTO 1.38 K/mm3 (0.84-5.20); LYMPHOCYTES PERCENT AUTO 18 % (21-46); MONOCYTES ABSOLUTE AUTO 0.74 K/mm3 (0.16-1.47); MONOCYTES PERCENT AUTO 10 % (4-13); Mean Corpuscular HGB Conc 31.0 g/dL (31.5-36.5); Mean Corpuscular Volume 96 fL (80-100); NEUTROPHILS ABSOLUTE AUTO 5.08 K/mm3 (1.96-9.15); NEUTROPHILS PERCENT AUTO 67 % (41-73); NRBC ABSOLUTE 0.00 K/mm3 (0.00-0.02); NRBC Auto 0.0 /100 WBC (0.0-0.2); Platelet Count 338 K/mm3 (150-400); RDW Coefficient Variation 14.7 % (11.7-14.2); RDW Standard Deviation 51.0 fL (35.1-46.3)
[2025-02-27] MEDS ORDERED: NS 500 ML IV ONE (08:20)
[2025-02-27] MEDS ORDERED: FentaNYL Citrate 50 MCG/ML 2 ML Injection ONE (08:23)
[2025-02-27] MEDS ORDERED: Midazolam HCl 1MG / ML 2ML Vial ONE (08:23)
[2025-02-27 08:28] LABS: Anion Gap 9.0 mmol/L (3-11); Blood Urea Nitrogen 40.0 mg/dL (8-24); CO2, Blood 35.0 mmol/L (21-32); Calcium, Blood 9.3 mg/dL (8.5-10.1); Chloride, Blood 95.0 mmol/L (98-108); Creatinine, Blood 3.64 mg/dL (0.40-1.00); Glucose, Blood 93.0 mg/dL (70-99); Potassium, Blood 3.5 mmol/L (3.5-5.5); Sodium, Blood 135.0 mmol/L (136-145)
[2025-02-27 09:35] VITALS: BP 121/61
--- NOTE | 2025-02-27 09:35 | NUR ---
PT ARRIVES BACK TO RECOVERY ROOM VIA BED, ALERT AND ORIENTED AT THIS TIME. VSS. PT. HAS TR BAND TO RIGHT RADIAL SITE. NO SWELLING OR OOZING. SMALL AMOUNT OF BRUISING FROM ACCESS ATTEMPT BELOW TR BAND HOWEVER SITE IS SOFT, NO SWELLING OR OOZING. PT. PROVDIED WITH WATER AND A SNACK PER REQUEST. PT. REFUSED BREAKFAST TRAY. DISTAL PULSES WNL.
[2025-02-27 09:45] VITALS: BP 120/61
[2025-02-27 10:00] VITALS: BP 120/56
[2025-02-27 10:15] VITALS: BP 111/57
[2025-02-27 10:30] VITALS: BP 108/51
--- NOTE | 2025-02-27 10:30 | NUR ---
TR band deflation intitated per protocol. no oozing or swelling noted at this time.
--- NOTE | 2025-02-27 10:44 | NUR ---
TR band fully deflated. pt resting comfortably in bed, vss
--- NOTE | 2025-02-27 11:37 | NUR ---
PT ASSISTED TO GET DRESSED. IV REMOVED CATHETER INTACT, TR BAND REMOVED SMALL BRUISE, SOFT, NO OOZING NOTED TO TR BAND SITE. BANDAGE PLACED AND ARM BOARD IN PLACE. PT. VSS PRIOR TO DISCHARGE. DISCHARGE INSTRUCTIONS REVIEWED IN DETAIL. PT LIVES AT AN ASSISTED LIVING FACILITY WHERE CAREGIVERS ARE AVAILABLE FOR ASSISTANCE WITH TRANSFER. ALL BELONGINGS RETURNED TO PT. TAKEN TO EXIT BY DISCHARGE VOLUNTEER.
== END 2025-02-27 11:43 | disposition home or self-care (01) ==
LOC: MHTC 06:30
PROVIDERS: Radiology Diagnostic Radiology
DX: T82.858A Stenosis of other vascular prosthetic devices, implants and grafts, initial encounter (principal); N18.6 End stage renal disease; Z88.0 Allergy status to penicillin; Z79.899 Other long term (current) drug therapy
CPT/HCPCS: 36902; 76937; 80048; 85025; 93005; 93010; 99152; 99153; C1725; C1769; C1887; C1894; J1644; J2250; J3010; J7030; J7040; Q9967

== ENCOUNTER → 2025-03-05 | Outpatient (CLI) | payer MEDICARE, OTHER ==
[2025-03-05 10:15] LABS: Albumin, Blood 3.1 g/dL (3.4-5.0); Anion Gap 14 mmol/L (3-11); Blood Urea Nitrogen 71 mg/dL (8-24); CO2, Blood 32 mmol/L (21-32); Calcium, Blood 9.7 mg/dL (8.5-10.1); Chloride, Blood 92 mmol/L (98-108); Creatinine, Blood 6.86 mg/dL (0.40-1.00); Glucose, Blood 134 mg/dL (70-99); Phosphorus, Blood 4.8 mg/dL (2.5-4.9); Potassium, Blood 3.7 mmol/L (3.5-5.5); Sodium, Blood 134 mmol/L (136-145)
== END ==
LOC: LAB SHORT 09:38 → LAB 09:38
PROVIDERS: Internal Medicine Nephrology
DX: N18.6 End stage renal disease (principal)
CPT/HCPCS: 80069